=== PATIENT | female | born 1960 | race Caucasian/White ===

== ENCOUNTER 2018-07-08 01:15 | Inpatient (IN) | payer MEDICARE ==
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
[2018-07-08 04:31] VITALS: BP 113/69
[2018-07-08] MEDS: Multivitamin w/ Minerals Tab PO SCH (10:40)
--- NOTE | 2018-07-08 17:33 | History and Physical ---
History of Present Illness - HPI Chief Complaint: AGITATION HPI: THIS IS A 58-YEAR OLD FEMALE WHO IS A [facility] RESIDENT ADMITTED TO [facility] DUE TO AGITATION Vital Signs: Last Vital Signs Temp 98.7 F 07/08/18 14:00 Pulse 94 07/08/18 14:00 Resp 20 07/08/18 14:00 BP 134/72 07/08/18 14:00 Pulse Ox 98 07/08/18 14:00 Past Medical History Other History: PSYCHOSIS Family Medical History - Family Member Mother History Unknown: Yes Other Medical History: Pt has HX of HTN, Depression, Schizophrenia, GERD, Musle spasm Social History Smoke: No Alcohol: None Drugs: None Lives: Skilled Nursing - Medications Home Medications: Home Medication Medication Instructions Recorded Type Ascorbic Acid [Vitamin C] 500 mg PO DAILY 07/08/18 History Baclofen [Lioresal*] 10 mg PO TID 07/08/18 History Balsam Magalie/Decker Oil [Venelex] 1 appl TP DAILY 07/08/18 History Divalproex Sprinkle [Depakote 4 tab PO BID 07/08/18 History Sprinkle] Haloperidol Decanoate [Haldol 50 mg IM DAILY 07/08/18 History Decanoate 50] Hydrocodone/APAP 10 mg/325 mg 1 tab PO Q6H PRN 07/08/18 History [[place] 10 mg/325 mg] Hydrocodone/Acetaminophen [[place] 1 each PO Q6HR PRN 07/08/18 History 5-325 Tablet] Lacosamide [Vimpat] 50 mg PO BID 07/08/18 History Metoclopramide HCl 5 mg PO Q8HR PRN 07/08/18 History Morphine Sulfate 30 mg PO BID 07/08/18 History Multivitamin w/ Minerals 1 tab PO DAILY 07/08/18 History [Theragran M] OLANZapine [ZyPREXA] 5 mg PO BID PRN 07/08/18 History OLANZapine [ZyPREXA] 10 mg PO BID 07/08/18 History Pregabalin [Lyrica] 100 mg PO BID 07/08/18 History Rivaroxaban [Xarelto] 15 mg PO BID 07/08/18 History Silver Sulfadiazine 1% Cream [Ssd] 1 appl TP DAILY 07/08/18 History Trazodone HCl 50 mg PO HS 07/08/18 History - Allergies Allergies/Adverse Reactions: Allergies Allergy/AdvReac Type Severity Reaction Status Date / Time Penicillins Allergy Verified 07/08/18 01:42 Review of Systems - Review of Systems Constitutional: Report: No Significant Eyes: Report: No Significant Respiratory: Report: No Significant Cardiovascular: Report: No Significant Neurological: Report: No Significant Physical Exam - Physical Exam HEENT: Report: Ears Nose Throat within normal limits Neck: Report: Within normal limits Cardiovascular Systems: Report: +s1/s2 noted, Regular, Rate and Rhythm Respiratory: Report: Breath Sounds are within normal limits Abdomen: Report: Non-tender to palpation Skin: Report: Color of skin is within normal limits, Warm, Dry - Assessment Assessment: PSYCHOSIS AGITATION - Plan Plan: CONTINUE CURRENT ORDERS
[2018-07-08] MEDS: Hydrocodone/APAP 10 mg/325 mg Tab PO PRN (20:57)
--- NOTE | 2018-07-09 02:22 | Psychiatric Evaluation ---
DATE OF SERVICE: 07/08/2018 PSYCHIATRIC EVALUATION AND EXAMINATION IDENTIFYING DATA: The patient is a 58-year-old, resident of [facility]. Information obtained by directly interviewing the patient as well as reviewing the admission papers. JUSTIFICATION FOR HOSPITALIZATION: The patient is admitted here on voluntary basis in view of her acute psychosis. CHIEF COMPLAINT: "I do not known. HISTORY OF PRESENT ILLNESS: This is a first psychiatric hospitalization to [facility] for this patient, who is reported to have been very resistive and getting easily agitated and the patient has been in a assisted. The patient is reported to have decubitus ulcers and refusing the care and the patient is grossly psychotic and hence the patient has been admitted over here for stabilization. Sleep and appetite prior to the hospitalization are reported to be poor. Review of the chart indicated that the patient has been on 50 mg of the trazodone and olanzapine. She has been getting 10 mg b.i.d. and 5 mg b.i.d. p.r.n. The patient is also reported to be on the valproic acid, which she has been getting at 500 mg b.i.d. and the patient is also reported to have been getting the Haldol Decanoate on a monthly basis. Even with all the medication, the patient has been very reluctant to comply with the medication and has been screaming and yelling when I am trying to approach to get some information. PAST PSYCHIATRIC HISTORY: Details are not known. MEDICAL HISTORY AND PHYSICAL EXAMINATION: Requested to be done by Dr. Aquino. SUBSTANCE ABUSE HISTORY: None. PHYSICAL OR SEXUAL ABUSE HISTORY: Details are not known. MENTAL STATUS EXAMINATION: The patient is a 58-year-old, looking her stated age, superficially cooperative, very reluctant and resistive. The patient has paranoid delusions and is responding to internal stimuli. Insight and judgment at this time are noted to be still impaired. Impulse control is noted to be poor. Coping skills are also noted to be very poor. The patient is resistive to care. The patient is alert and oriented x 3. The patient's behavior is likely a danger to self at this time in view of her refusal to participate in the care. DIAGNOSTIC IMPRESSION: AXIS I: Schizoaffective disorder. AXIS II: None. AXIS III: As per Dr. Aquino. IMMEDIATE TREATMENT PLAN: The patient is going to be observed on inpatient unit, provided with supportive psychotherapy. The patient is going to be closely monitored. I encouraged to verbalize the concerns. Once stabilized, the patient is going to be discharged to self to be followed up on an outpatient basis. JOB# [id number]
[2018-07-09] MEDS ORDERED: Haloperidol Lactate 5 mg/mL 1mL Vial ONE (08:48)
[2018-07-09] MEDS ORDERED: Haloperidol Lactate 5 mg/mL 1mL Vial IM ONE (09:11)
[2018-07-09] MEDS: Venelex 60gm Tube TP SCH (09:32)
[2018-07-09] MEDS: Multivitamin w/ Minerals Tab PO SCH (09:32)
[2018-07-09] MEDS: Hydrocodone/APAP 10 mg/325 mg Tab PO PRN (20:38)
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
--- NOTE | 2018-07-10 01:05 | Progress Notes ---
DATE: 07/09/2018 SUBJECTIVE: Staff was spoken to. The patient is interviewed. Mood is noted to be irritable. Affect is constricted. The patient is screaming and yelling. One minute she is saying that I need to bring the pipe supervisor, next minute she is seeing that I need to bring the radiologist. The patient has been going on and on. The patient is screaming, yelling and stating that she is in assisted and she needs to be out. The patient has no insight into her illness. The patient has been having acute mood swings and paranoid delusions. PLAN: To continue the patient with the current medications and if the patient is going to be ____ off like this one, possibly the patient is going to be given a dose of Haldol, Ativan, and Benadryl to contain her mood swings. JOB# [id number]
[2018-07-10] MEDS: Multivitamin w/ Minerals Tab PO SCH (08:37)
[2018-07-10] MEDS: Venelex 60gm Tube TP SCH (08:39)
[2018-07-10] MEDS: Hydrocodone/APAP 10 mg/325 mg Tab PO PRN ×3 (10:03→23:30)
--- NOTE | 2018-07-10 19:24 | Internal Medicine Prog Note ---
Internal Medicine Subjective - Subjective Service Date: 07/10/18 Patient seen and examined:: with staff Patient is:: awake, verbal Per staff patient has:: tolerating meds Internal Medicine Objective - Physical Exam Vitals and I&O: Vital Signs Temp 97.4 F 07/10/18 14:00 Pulse 99 07/10/18 14:00 Resp 20 07/10/18 14:00 BP 134/97 07/10/18 14:00 Pulse Ox 97 07/10/18 14:00 Active Medications: Current Medications Acetaminophen (Tylenol) 650 mg PO Q4H PRN PRN Reason: Mild Pain / Temp above 100 Stop: 09/06/18 04:30 Last Admin: 07/08/18 05:35 Dose: 650 mg Acetaminophen/Hydrocodone Bitart ([place] 10 Mg/325 Mg) 1 tab PO Q6H PRN PRN Reason: Pain (Moderate) Stop: 09/06/18 10:21 Last Admin: 07/10/18 16:07 Dose: 1 tab Acetaminophen/Hydrocodone Bitart ([place] 5mg/325mg) 1 tab PO Q6HR PRN PRN Reason: Pain (Mild) Stop: 09/06/18 10:21 Ascorbic Acid (Vitamin C) 500 mg PO DAILY [facility] Stop: 09/06/18 10:29 Last Admin: 07/10/18 08:37 Dose: 500 mg [place] Oil/Belizean Balsam/Trypsin (Venelex) 1 appl TP DAILY [facility] Stop: 09/07/18 08:59 Last Admin: 07/10/18 08:39 Dose: Not Given Divalproex Sodium (Depakote Sprinkle) 500 mg PO BID JENNY; Protocol Stop: 09/06/18 16:59 Last Admin: 07/10/18 16:08 Dose: 500 mg Lacosamide (Vimpat) 50 mg PO BID JENNY Stop: 09/06/18 16:59 Last Admin: 07/10/18 16:07 Dose: 50 mg Lorazepam (Ativan) 0.5 mg PO Q4H PRN; Protocol PRN Reason: Anxiety Stop: 09/06/18 04:30 Last Admin: 07/09/18 20:38 Dose: 0.5 mg Olanzapine (Zyprexa) 5 mg PO BID PRN; Protocol PRN Reason: Agitation Stop: 09/06/18 10:37 Olanzapine (Zyprexa) 10 mg PO BID [facility]; Protocol Stop: 09/06/18 16:59 Last Admin: 07/10/18 16:07 Dose: 10 mg Pregabalin (Lyrica) 100 mg PO BID [facility] Stop: 09/06/18 10:29 Last Admin: 07/10/18 16:06 Dose: 100 mg Rivaroxaban (Xarelto) 15 mg PO BID [facility] Stop: 07/29/18 10:59 Last Admin: 07/10/18 16:07 Dose: 15 mg General: alert HEENT: NC/AT, PERRLA Neck: Supple Lungs: CTAB Cardiovascular: RRR, Normal S1, Normal S2 Abdomen: soft, non-tender, non-distended Internal Medicine Assmt/Plan - Assessment Assessment: PSYCHOSIS AGITATION - Plan Plan: CONTINUE CURRENT ORDERS Nutritional Asmnt/Malnutr-PDOC - Dietary Evaluation Malnutrition Findings (Please click <Entered> for more info): Nutritional Asmnt/Malnutrition Start: 07/09/18 14: 13 Text: Status: Complete Freq: Protocol: Document 07/09/18 14:13 [email or web address] (Rec: 07/09/18 14:25 [email or web address] JUAN JOSÉ) Nutritional Asmnt/Malnutrition Patient General Information Nutritional Screening Consult Diagnosis psychosis Pertinent Medical Hx/Surgical Hx HTN, depression, schizophrenia , GERD, muscle spasm Subjective Information Consult received for pressure ulcers to buttocks and right heel. Pt was seen in bed at time of visit, confused, continues to talk to self. Pt stated she likes juice but called the rest of the food " vomit", food preferences taken . PO intake is 0-25% per EMR. Pt only likes to drink liquids per RN. Current Diet Order/ Nutrition Support low sodium 2gm, cardiac Pertinent Medications vit c Pertinent Labs not indicated Nutritional Hx/Data Height 5 ft 4 in Height (Calculated Centimeters) 162.6 Current Weight (lbs) 120 lb Weight (Calculated Kilograms) 54.4 Weight (Calculated Grams) 27362.1 [place] Body Weight 120 Body Mass Index (BMI) 20.5 Weight Status Approriate GI Symptoms GI Symptoms None Last BM 07/08 Difficult in: None Food Allergies No Skin Integrity/Comment: pressure ulcers to buttocks and right heel, pressure areas right and left lower legs chino 13 Current %PO Negligible < 25% Estimated Nutritional Goals BEE in Kcals: Using Current wt Calories/Kcals/Kg 25-30 Kcals Calculated 3352-9079 Protein: Using Current wt Protein g/k-1.2 Protein Calculated 54-65 Fluid: ml 4829-7443 (1ml/kcal) Nutritional Problem 2. Problem Problem increased nutrient needs Etiology increased metabolic demand for wound healing Signs/Symptoms: pressure ulcers to buttocks and right heel, and pressure areas to right and left lower legs 1. Problem Problem inadequate energy/protein intake Etiology possible changes in appetite and food preference Signs/Symptoms: PO intake 0-25% Malnutrition Alert Is there a minimum of two criteria No selected? Query Text:Check all the applicable criteria. A minimum of two criteria are recommended for diagnosis of either severe or non-severe malnutrition. Malnutrition Related to Morbid Obesity Malnutrition related to morbid obesity No Intervention/Recommendation Comments 1. Continue with low sodium 2gm, cardiac diet as ordered. 2. Add ensure enlive TID for extra kcal and protein 3. Add Jeremias BID for wound healing 4. Monitor PO intake, wt, labs and skin integrity 5. F/U as high risk in 2-3 days Expected Outcomes/Goals Expected Outcomes/Goals 1. PO intake to meet at least 75% of nutritional needs. 2. Wt stability, skin to remain intact, labs to approach WNL. Reviewed by Cecilia Tanner RD
--- NOTE | 2018-07-10 20:19 | Progress Notes ---
DATE: 07/10/2018 SUBJECTIVE: Staff was spoken to. The patient is interviewed. Mood is noted to be irritable. Affect is constricted. Insight and judgment at this time are noted to be still impaired. Impulse control is noted to be poor. Coping skills are also noted to be very poor. The patient is currently on Depakote and olanzapine and has been able to tolerate the medication. However, the patient continues to be irritable and angry, tends to scream and yell. The patient has been very reluctant to comply with the plans as requested by the staff members. ASSESSMENT: The patient is grossly psychotic and impulsive. PLAN: To continue the patient with the supportive therapy and followup. JOB# [id number]
[2018-07-11] MEDS: Hydrocodone/APAP 5mg/325mg Tab PO PRN (10:00)
--- NOTE | 2018-07-11 11:40 | Progress Notes ---
DATE: 07/11/2018 PSYCHIATRIC PROGRESS NOTE SUBJECTIVE: Staff was spoken to. The patient is interviewed. Mood is noted to be irritable. Affect is constricted. Coping skills are noted to be poor. The patient is screaming and yelling. The patient is reluctant to comply with the medication with great difficulty. The patient has accepted the medications by mouth. The patient has no insight into her illness. The patient is refusing the wound care. ASSESSMENT: The patient is still grossly psychotic and impulsive. PLAN: To continue the patient with the supportive therapy and followup. JOB# [id number]
[2018-07-11] MEDS: Multivitamin w/ Minerals Tab PO SCH (13:58)
[2018-07-11] MEDS: Venelex 60gm Tube TP SCH (13:59)
--- NOTE | 2018-07-11 17:01 | Internal Medicine Prog Note ---
Internal Medicine Subjective - Subjective Patient seen and examined:: chart reviewed Patient is:: awake, verbal, other (agitated easily ) Per staff patient has:: tolerating meds Internal Medicine Objective - Physical Exam Vitals and I&O: Vital Signs Temp 99 F 07/11/18 15:21 Pulse 97 07/11/18 15:21 Resp 19 07/11/18 15:21 BP 135/88 07/11/18 15:21 Pulse Ox 98 07/11/18 15:21 Intake & Output 07/10/18 07/11/18 07/11/18 18:59 06:59 18:59 Intake Total 120 Balance 120 Intake: Oral 120 Other: # Voids 2 # Bowel Movements 0 Active Medications: Current Medications Acetaminophen (Tylenol) 650 mg PO Q4H PRN PRN Reason: Mild Pain / Temp above 100 Stop: 09/06/18 04:30 Last Admin: 07/11/18 13:57 Dose: 650 mg Acetaminophen/Hydrocodone Bitart ([place] 10 Mg/325 Mg) 1 tab PO Q6H PRN PRN Reason: Pain (Moderate) Stop: 09/06/18 10:21 Last Admin: 07/10/18 23:30 Dose: 1 tab Acetaminophen/Hydrocodone Bitart ([place] 5mg/325mg) 1 tab PO Q6HR PRN PRN Reason: Pain (Mild) Stop: 09/06/18 10:21 Last Admin: 07/11/18 10:00 Dose: 1 tab Ascorbic Acid (Vitamin C) 500 mg PO DAILY [facility] Stop: 09/06/18 10:29 Last Admin: 07/11/18 14:00 Dose: Not Given [place] Oil/Haitian Balsam/Trypsin (Venelex) 1 appl TP DAILY [facility] Stop: 09/07/18 08:59 Last Admin: 07/11/18 13:59 Dose: 1 appl Divalproex Sodium (Depakote Sprinkle) 500 mg PO BID JENNY; Protocol Stop: 09/06/18 16:59 Last Admin: 07/11/18 09:40 Dose: Not Given Lacosamide (Vimpat) 50 mg PO BID [facility] Stop: 09/06/18 16:59 Last Admin: 07/11/18 08:42 Dose: 50 mg Lorazepam (Ativan) 0.5 mg PO Q4H PRN; Protocol PRN Reason: Anxiety Stop: 09/06/18 04:30 Last Admin: 07/09/18 20:38 Dose: 0.5 mg Olanzapine (Zyprexa) 5 mg PO BID PRN; Protocol PRN Reason: Agitation Stop: 09/06/18 10:37 Olanzapine (Zyprexa) 10 mg PO BID JENNY; Protocol Stop: 09/06/18 16:59 Last Admin: 07/11/18 09:55 Dose: 10 mg Pregabalin (Lyrica) 100 mg PO BID [facility] Stop: 09/06/18 10:29 Last Admin: 07/11/18 08:44 Dose: 100 mg Rivaroxaban (Xarelto) 15 mg PO BID [facility] Stop: 07/29/18 10:59 Last Admin: 07/11/18 08:43 Dose: 15 mg General: alert, demented HEENT: NC/AT, PERRLA Neck: Supple Lungs: CTAB Cardiovascular: RRR, Normal S1, Normal S2 Abdomen: soft, non-tender, non-distended Internal Medicine Assmt/Plan - Assessment Assessment: PSYCHOSIS AGITATION - Plan Plan: as per psych will continue to monitor Nutritional Asmnt/Malnutr-PDOC - Dietary Evaluation Malnutrition Findings (Please click <Entered> for more info): Nutritional Asmnt/Malnutrition Start: 07/09/18 14: 13 Text: Status: Complete Freq: Protocol: Document 07/09/18 14:13 [email or web address] (Rec: 07/09/18 14:25 [email or web address] JUAN JOSÉ) Nutritional Asmnt/Malnutrition Patient General Information Nutritional Screening Consult Diagnosis psychosis Pertinent Medical Hx/Surgical Hx HTN, depression, schizophrenia , GERD, muscle spasm Subjective Information Consult received for pressure ulcers to buttocks and right heel. Pt was seen in bed at time of visit, confused, continues to talk to self. Pt stated she likes juice but called the rest of the food " vomit", food preferences taken . PO intake is 0-25% per EMR. Pt only likes to drink liquids per RN. Current Diet Order/ Nutrition Support low sodium 2gm, cardiac Pertinent Medications vit c Pertinent Labs not indicated Nutritional Hx/Data Height 1.63 m Height (Calculated Centimeters) 162.6 Current Weight (lbs) 54.431 kg Weight (Calculated Kilograms) 54.4 Weight (Calculated Grams) 66450.1 [place] Body Weight 120 Body Mass Index (BMI) 20.5 Weight Status Approriate GI Symptoms GI Symptoms None Last BM 07/08 Difficult in: None Food Allergies No Skin Integrity/Comment: pressure ulcers to buttocks and right heel, pressure areas right and left lower legs chino 13 Current %PO Negligible < 25% Estimated Nutritional Goals BEE in Kcals: Using Current wt Calories/Kcals/Kg 25-30 Kcals Calculated 1697-8007 Protein: Using Current wt Protein g/k-1.2 Protein Calculated 54-65 Fluid: ml 4990-2759 (1ml/kcal) Nutritional Problem 2. Problem Problem increased nutrient needs Etiology increased metabolic demand for wound healing Signs/Symptoms: pressure ulcers to buttocks and right heel, and pressure areas to right and left lower legs 1. Problem Problem inadequate energy/protein intake Etiology possible changes in appetite and food preference Signs/Symptoms: PO intake 0-25% Malnutrition Alert Is there a minimum of two criteria No selected? Query Text:Check all the applicable criteria. A minimum of two criteria are recommended for diagnosis of either severe or non-severe malnutrition. Malnutrition Related to Morbid Obesity Malnutrition related to morbid obesity No Intervention/Recommendation Comments 1. Continue with low sodium 2gm, cardiac diet as ordered. 2. Add ensure enlive TID for extra kcal and protein 3. Add Jeremias BID for wound healing 4. Monitor PO intake, wt, labs and skin integrity 5. F/U as high risk in 2-3 days Expected Outcomes/Goals Expected Outcomes/Goals 1. PO intake to meet at least 75% of nutritional needs. 2. Wt stability, skin to remain intact, labs to approach WNL. Reviewed by Cecilia Tanner RD
[2018-07-11] MEDS: Hydrocodone/APAP 10 mg/325 mg Tab PO PRN (20:40)
[2018-07-12] MEDS: Hydrocodone/APAP 10 mg/325 mg Tab PO PRN ×2 (02:24→20:41)
[2018-07-12] MEDS ORDERED: Haloperidol Lactate 5 mg/mL 1mL Vial IM PRN (04:27)
[2018-07-12] MEDS: Venelex 60gm Tube TP SCH (09:46)
[2018-07-12] MEDS: Multivitamin w/ Minerals Tab PO SCH (09:46)
[2018-07-12] MEDS: Hydrocodone/APAP 5mg/325mg Tab PO PRN (13:20)
--- NOTE | 2018-07-12 17:00 | Progress Notes ---
DATE: 07/11/2018 SUBJECTIVE: The patient is seen and interviewed. The patient presents as irritable. The patient's behavior includes persistent yelling episodes. Staff indicates the patient has been mostly noncompliant with medication and quite difficult to redirect on the unit. The staff also indicates that the patient refused her wound care. The patient is oppositional and rises almost to the point of being defiant at times. OBJECTIVE: Mood irritable. Affect constricted. Thought process shows to be concrete. There is paranoid ideation present. The patient is having great difficulty following through and complying with her treatment. The patient denied any auditory or visual hallucinations. The patient did not answer the question about experiencing any suicidal ideation, plan or intention. ASSESSMENT AND PLAN: The patient is still impulsive and resistant to care. The patient continues to be grossly psychotic. The patient's behavior is oppositional rising almost to defiance. We provided remotivation for the patient to become compliant with her care and treatment. We provided de-escalation and limit setting. We encouraged the patient also to be able to demonstrate emotional and self-regulation and verbalize her concerns versus acting out. We provided stress management to increase the patient's frustration tolerance. We provided coping strategies for chronic severe mental illness and to engender trust with the staff, so that she can follow through with staff direction. We will follow up in 2-3 days to continue the present treatment plan. JOB# [id number] JESSICA
--- NOTE | 2018-07-12 21:20 | Progress Notes ---
DATE: 07/12/2018 SUBJECTIVE: The patient was seen in the dining area. The patient is irritable, guarded, easily gets frustrated, appears to be confused. Otherwise, the patient is in no acute distress. OBJECTIVE: VITAL SIGNS: Temperature 98.3, heart rate 91, blood pressure 101/72, respirations 20, and 98% on room air. HEENT: Head is atraumatic and normocephalic. Eyes: Bilateral conjunctivae are clear. Bilateral pupils are equally round and reactive. NECK: Supple. No JVD. CARDIOVASCULAR: S1 and S2 without murmur. PULMONARY: Clear to auscultation. GASTROINTESTINAL: Soft and nontender without guarding. Positive bowel sounds. MUSCULOSKELETAL: No clubbing. No cyanosis noted. ASSESSMENT: 1. Schizoaffective disorder. 2. Osteoarthritis. 3. Atrial fibrillation. PLAN: We will keep the patient in inpatient psychiatric unit. We will follow up with a psychiatrist to monitor the patient's condition and behavior. Treatment plans were discussed with the patient's nurse. Treatment plans were discussed with Dr. Aquino. JOB# [id number]
--- NOTE | 2018-07-13 01:42 | Progress Notes ---
DATE: 07/12/2018 PSYCHIATRIC PROGRESS NOTE SUBJECTIVE: Staff was spoken to. The patient is interviewed. Mood is noted to be irritable. Affect is constricted. The patient is screaming and yelling. She is stating that she is in a [facility]. She needs to be out of here and going on and on. The patient is very paranoid and is having acute mood swings. No side effects to the medications are noted. The patient has been screaming and yelling earlier in the morning and the patient has to be given a dose of Haldol, Ativan and Benadryl to calm her down. ASSESSMENT: The patient is still psychotic and impulsive. PLAN: To continue the patient with the current medications and followup. JOB# [id number]
[2018-07-13] MEDS: Venelex 60gm Tube TP SCH (09:41)
[2018-07-13] MEDS: Multivitamin w/ Minerals Tab PO SCH ×2 (09:41→10:19)
[2018-07-13] MEDS: Hydrocodone/APAP 10 mg/325 mg Tab PO PRN ×2 (16:08→22:21)
[2018-07-14] MEDS: Hydrocodone/APAP 10 mg/325 mg Tab PO PRN ×3 (06:12→22:47)
--- NOTE | 2018-07-14 07:54 | Progress Notes ---
DATE: 07/13/2018 SUBJECTIVE: Staff was spoken to. The patient is interviewed. Mood is noted to be irritable. Affect is constricted. The patient is stating that she should be given the 30 mg of morphine and Tegretol. The patient is demanding. The patient's coping skills are noted to be very poor. The aggressive behavior seems to be coming down a little bit today. No side effects to the medications are noted. ASSESSMENT: The patient is still psychotic and impulsive. PLAN: To continue the patient with the current medications and followup. JOB# [id number]
[2018-07-14] MEDS: Multivitamin w/ Minerals Tab PO SCH (09:02)
[2018-07-14] MEDS: Venelex 60gm Tube TP SCH (09:57)
--- NOTE | 2018-07-14 14:52 | Internal Medicine Prog Note ---
Internal Medicine Subjective - Subjective Service Date: 07/14/18 Patient is:: awake, verbal, talking, agitated, other (affect is constricted. Pt is being demanding, stating she should recieve 30.mg of morphine & Tegretol.) Per staff patient has:: agitated (less aggressive today.), tolerating meds Internal Medicine Objective - Physical Exam Vitals and I&O: Vital Signs Temp 98.0 F 07/14/18 04:48 Pulse 78 07/14/18 04:48 Resp 19 07/14/18 04:48 BP 117/73 07/14/18 04:48 Pulse Ox 96 07/14/18 04:48 Intake & Output 07/13/18 07/14/18 07/14/18 18:59 06:59 18:59 Intake Total 480 Balance 480 Intake: Oral 480 Other: # Voids 2 # Bowel Movements 0 Active Medications: Current Medications Acetaminophen (Tylenol) 650 mg PO Q4H PRN PRN Reason: Mild Pain / Temp above 100 Stop: 09/06/18 04:30 Last Admin: 07/14/18 09:57 Dose: 650 mg Acetaminophen/Hydrocodone Bitart ([place] 10 Mg/325 Mg) 1 tab PO Q6H PRN PRN Reason: Pain (Moderate) Stop: 09/06/18 10:21 Last Admin: 07/14/18 13:57 Dose: 1 tab Acetaminophen/Hydrocodone Bitart ([place] 5mg/325mg) 1 tab PO Q6HR PRN PRN Reason: Pain (Mild) Stop: 09/06/18 10:21 Last Admin: 07/12/18 13:20 Dose: 1 tab Ascorbic Acid (Vitamin C) 500 mg PO DAILY [facility] Stop: 09/06/18 10:29 Last Admin: 07/14/18 09:02 Dose: 500 mg [place] Oil/[place] Balsam/Trypsin (Venelex) 1 appl TP DAILY [facility] Stop: 09/07/18 08:59 Last Admin: 07/14/18 09:57 Dose: 1 appl Divalproex Sodium (Depakote Sprinkle) 500 mg PO BID [facility]; Protocol Stop: 09/06/18 16:59 Last Admin: 07/14/18 09:01 Dose: Not Given Haloperidol Lactate (Haldol) 5 mg IM NOW PRN PRN Reason: Agitation Stop: 09/10/18 04:26 Last Admin: 07/12/18 04:52 Dose: 5 mg Lacosamide (Vimpat) 50 mg PO BID [facility] Stop: 09/06/18 16:59 Last Admin: 07/14/18 09:57 Dose: 50 mg Lorazepam (Ativan) 0.5 mg PO Q4H PRN; Protocol PRN Reason: Anxiety Stop: 09/06/18 04:30 Last Admin: 07/13/18 20:17 Dose: 0.5 mg Lorazepam (Ativan) 1 mg IM NOW PRN; Protocol PRN Reason: Anxiety Stop: 09/10/18 04:27 Last Admin: 07/12/18 04:52 Dose: 1 mg Olanzapine (Zyprexa) 5 mg PO BID PRN; Protocol PRN Reason: Agitation Stop: 09/06/18 10:37 Last Admin: 07/13/18 20:17 Dose: 5 mg Olanzapine (Zyprexa) 10 mg PO BID [facility]; Protocol Stop: 09/06/18 16:59 Last Admin: 07/14/18 09:02 Dose: 10 mg Pregabalin (Lyrica) 100 mg PO BID [facility] Stop: 09/06/18 10:29 Last Admin: 07/14/18 09:01 Dose: 100 mg Rivaroxaban (Xarelto) 15 mg PO BID [facility] Stop: 07/29/18 10:59 Last Admin: 07/14/18 10:36 Dose: 15 mg General: alert, demented HEENT: NC/AT, PERRLA Neck: Supple Lungs: CTAB Cardiovascular: RRR, Normal S1, Normal S2 Abdomen: soft, non-tender, non-distended Internal Medicine Assmt/Plan - Assessment Assessment: still psychotic and impulsive PSYCHOSIS AGITATION - Plan Plan: as per psych will continue to monitor Nutritional Asmnt/Malnutr-PDOC - Dietary Evaluation Malnutrition Findings (Please click <Entered> for more info): Nutritional Asmnt/Malnutrition Start: 07/09/18 14: 13 Text: Status: Complete Freq: Protocol: Document 07/09/18 14:13 [email or web address] (Rec: 07/09/18 14:25 [email or web address] JUAN JOSÉ) Nutritional Asmnt/Malnutrition Patient General Information Nutritional Screening Consult Diagnosis psychosis Pertinent Medical Hx/Surgical Hx HTN, depression, schizophrenia , GERD, muscle spasm Subjective Information Consult received for pressure ulcers to buttocks and right heel. Pt was seen in bed at time of visit, confused, continues to talk to self. Pt stated she likes juice but called the rest of the food " vomit", food preferences taken . PO intake is 0-25% per EMR. Pt only likes to drink liquids per RN. Current Diet Order/ Nutrition Support low sodium 2gm, cardiac Pertinent Medications vit c Pertinent Labs not indicated Nutritional Hx/Data Height 1.63 m Height (Calculated Centimeters) 162.6 Current Weight (lbs) 54.431 kg Weight (Calculated Kilograms) 54.4 Weight (Calculated Grams) 06109.1 [place] Body Weight 120 Body Mass Index (BMI) 20.5 Weight Status Approriate GI Symptoms GI Symptoms None Last BM 07/08 Difficult in: None Food Allergies No Skin Integrity/Comment: pressure ulcers to buttocks and right heel, pressure areas right and left lower legs chino 13 Current %PO Negligible < 25% Estimated Nutritional Goals BEE in Kcals: Using Current wt Calories/Kcals/Kg 25-30 Kcals Calculated 7803-8841 Protein: Using Current wt Protein g/k-1.2 Protein Calculated 54-65 Fluid: ml 7931-4823 (1ml/kcal) Nutritional Problem 2. Problem Problem increased nutrient needs Etiology increased metabolic demand for wound healing Signs/Symptoms: pressure ulcers to buttocks and right heel, and pressure areas to right and left lower legs 1. Problem Problem inadequate energy/protein intake Etiology possible changes in appetite and food preference Signs/Symptoms: PO intake 0-25% Malnutrition Alert Is there a minimum of two criteria No selected? Query Text:Check all the applicable criteria. A minimum of two criteria are recommended for diagnosis of either severe or non-severe malnutrition. Malnutrition Related to Morbid Obesity Malnutrition related to morbid obesity No Intervention/Recommendation Comments 1. Continue with low sodium 2gm, cardiac diet as ordered. 2. Add ensure enlive TID for extra kcal and protein 3. Add Jeremias BID for wound healing 4. Monitor PO intake, wt, labs and skin integrity 5. F/U as high risk in 2-3 days Expected Outcomes/Goals Expected Outcomes/Goals 1. PO intake to meet at least 75% of nutritional needs. 2. Wt stability, skin to remain intact, labs to approach WNL. Reviewed by Cecilia Tanner RD
--- NOTE | 2018-07-14 23:22 | Progress Notes ---
DATE: 07/14/2018 SUBJECTIVE: Staff was spoken to. The patient is interviewed. Mood is noted to be irritable. Affect is constricted. Insight and judgment are noted to be still impaired. Impulse control is very poor. The patient has been getting the Zyprexa 10 mg twice a day and has been able to tolerate. The patient is also on Depakote 500 mg twice a day. No side effects to medications are noted. The patient has been pacing on the unit and the patient needs to be redirected all the time. ASSESSMENT: The patient is still paranoid. PLAN: To continue the patient with the supportive therapy, encouraged the patient to verbalize the concerns rather than to act out. JOB# [id number]
[2018-07-15] MEDS: Hydrocodone/APAP 10 mg/325 mg Tab PO PRN ×3 (06:23→20:59)
[2018-07-15] MEDS: Hydrocodone/APAP 5mg/325mg Tab PO PRN (09:07)
[2018-07-15] MEDS: Multivitamin w/ Minerals Tab PO SCH (09:08)
[2018-07-15] MEDS: Venelex 60gm Tube TP SCH ×2 (10:00→16:00)
--- NOTE | 2018-07-15 13:48 | Internal Medicine Prog Note ---
Internal Medicine Subjective - Subjective Service Date: 07/15/18 Patient is:: awake, verbal, talking, agitated, other (affect is constricted. Pt is being demanding, stating she should recieve 30.mg of morphine & Tegretol.) Per staff patient has:: agitated (less aggressive today.), tolerating meds Internal Medicine Objective - Physical Exam Vitals and I&O: Vital Signs Temp 99.0 F 07/14/18 20:08 Pulse 96 07/14/18 20:08 Resp 20 07/14/18 20:08 BP 123/77 07/14/18 20:08 Pulse Ox 99 07/14/18 20:08 Intake & Output 07/14/18 07/15/18 07/15/18 18:59 06:59 18:59 Intake Total 1200 240 Balance 1200 240 Intake: Oral 1200 240 Other: # Voids 3 2 Active Medications: Current Medications Acetaminophen (Tylenol) 650 mg PO Q4H PRN PRN Reason: Mild Pain / Temp above 100 Stop: 09/06/18 04:30 Last Admin: 07/14/18 09:57 Dose: 650 mg Acetaminophen/Hydrocodone Bitart ([place] 10 Mg/325 Mg) 1 tab PO Q6H PRN PRN Reason: Pain (Moderate) Stop: 09/06/18 10:21 Last Admin: 07/15/18 06:23 Dose: 1 tab Acetaminophen/Hydrocodone Bitart ([place] 5mg/325mg) 1 tab PO Q6HR PRN PRN Reason: Pain (Mild) Stop: 09/06/18 10:21 Last Admin: 07/15/18 09:07 Dose: 1 tab Ascorbic Acid (Vitamin C) 500 mg PO DAILY [facility] Stop: 09/06/18 10:29 Last Admin: 07/15/18 09:08 Dose: 500 mg [place] Oil/[place] Balsam/Trypsin (Venelex) 1 appl TP DAILY [facility] Stop: 09/07/18 08:59 Last Admin: 07/14/18 09:57 Dose: 1 appl Divalproex Sodium (Depakote Sprinkle) 500 mg PO BID [facility]; Protocol Stop: 09/06/18 16:59 Last Admin: 07/15/18 09:09 Dose: Not Given Haloperidol Lactate (Haldol) 5 mg IM NOW PRN PRN Reason: Agitation Stop: 09/10/18 04:26 Last Admin: 07/12/18 04:52 Dose: 5 mg Lacosamide (Vimpat) 50 mg PO BID [facility] Stop: 09/06/18 16:59 Last Admin: 07/15/18 09:08 Dose: 50 mg Lorazepam (Ativan) 0.5 mg PO Q4H PRN; Protocol PRN Reason: Anxiety Stop: 09/06/18 04:30 Last Admin: 07/13/18 20:17 Dose: 0.5 mg Lorazepam (Ativan) 1 mg IM NOW PRN; Protocol PRN Reason: Anxiety Stop: 09/10/18 04:27 Last Admin: 07/12/18 04:52 Dose: 1 mg Olanzapine (Zyprexa) 5 mg PO BID PRN; Protocol PRN Reason: Agitation Stop: 09/06/18 10:37 Last Admin: 07/14/18 22:47 Dose: 5 mg Olanzapine (Zyprexa) 10 mg PO BID [facility]; Protocol Stop: 09/06/18 16:59 Last Admin: 07/15/18 09:08 Dose: 10 mg Pregabalin (Lyrica) 100 mg PO BID [facility] Stop: 09/06/18 10:29 Last Admin: 07/15/18 09:07 Dose: 100 mg Rivaroxaban (Xarelto) 15 mg PO BID [facility] Stop: 07/29/18 10:59 Last Admin: 07/15/18 09:07 Dose: 15 mg General: alert, demented HEENT: NC/AT, PERRLA Neck: Supple Lungs: CTAB Cardiovascular: RRR, Normal S1, Normal S2 Abdomen: soft, non-tender, non-distended Internal Medicine Assmt/Plan - Assessment Assessment: PSYCHOSIS AGITATION - Plan Plan: CONTINUE CURRENT ORDERS Nutritional Asmnt/Malnutr-PDOC - Dietary Evaluation Malnutrition Findings (Please click <Entered> for more info): Nutritional Asmnt/Malnutrition Start: 07/09/18 14: 13 Text: Status: Complete Freq: Protocol: Document 07/09/18 14:13 [email or web address] (Rec: 07/09/18 14:25 [email or web address] JUAN JOSÉ) Nutritional Asmnt/Malnutrition Patient General Information Nutritional Screening Consult Diagnosis psychosis Pertinent Medical Hx/Surgical Hx HTN, depression, schizophrenia , GERD, muscle spasm Subjective Information Consult received for pressure ulcers to buttocks and right heel. Pt was seen in bed at time of visit, confused, continues to talk to self. Pt stated she likes juice but called the rest of the food " vomit", food preferences taken . PO intake is 0-25% per EMR. Pt only likes to drink liquids per RN. Current Diet Order/ Nutrition Support low sodium 2gm, cardiac Pertinent Medications vit c Pertinent Labs not indicated Nutritional Hx/Data Height 5 ft 4 in Height (Calculated Centimeters) 162.6 Current Weight (lbs) 120 lb Weight (Calculated Kilograms) 54.4 Weight (Calculated Grams) 55655.1 [place] Body Weight 120 Body Mass Index (BMI) 20.5 Weight Status Approriate GI Symptoms GI Symptoms None Last BM 07/08 Difficult in: None Food Allergies No Skin Integrity/Comment: pressure ulcers to buttocks and right heel, pressure areas right and left lower legs chino 13 Current %PO Negligible < 25% Estimated Nutritional Goals BEE in Kcals: Using Current wt Calories/Kcals/Kg 25-30 Kcals Calculated 6000-5339 Protein: Using Current wt Protein g/k-1.2 Protein Calculated 54-65 Fluid: ml 5769-4333 (1ml/kcal) Nutritional Problem 2. Problem Problem increased nutrient needs Etiology increased metabolic demand for wound healing Signs/Symptoms: pressure ulcers to buttocks and right heel, and pressure areas to right and left lower legs 1. Problem Problem inadequate energy/protein intake Etiology possible changes in appetite and food preference Signs/Symptoms: PO intake 0-25% Malnutrition Alert Is there a minimum of two criteria No selected? Query Text:Check all the applicable criteria. A minimum of two criteria are recommended for diagnosis of either severe or non-severe malnutrition. Malnutrition Related to Morbid Obesity Malnutrition related to morbid obesity No Intervention/Recommendation Comments 1. Continue with low sodium 2gm, cardiac diet as ordered. 2. Add ensure enlive TID for extra kcal and protein 3. Add Jeremias BID for wound healing 4. Monitor PO intake, wt, labs and skin integrity 5. F/U as high risk in 2-3 days Expected Outcomes/Goals Expected Outcomes/Goals 1. PO intake to meet at least 75% of nutritional needs. 2. Wt stability, skin to remain intact, labs to approach WNL. Reviewed by Cecilia Tanner RD
--- NOTE | 2018-07-15 14:12 | Progress Notes ---
DATE: 07/15/2018 PSYCHIATRIC PROGRESS NOTE PROGRESS ON THE UNIT: Staff was spoken to. The patient is interviewed. Mood is noted to be less irritable. Coping skills are noted to be improving. Paranoid delusions are noted, but the patient denies any current hallucinations. No side effects to the medications are noted at this time. ASSESSMENT: The patient's psychosis is resolving. PLAN: To continue the patient with current medications and followup. [facility]# [id number]
--- NOTE | 2018-07-16 00:29 | Progress Notes ---
DATE: 07/14/2018 SUBJECTIVE: The patient has been seen and interviewed. The patient presents as irritable and somewhat oppositional. Staff reports the patient continues to be impulsive and is pacing on the unit. The staff also indicates the patient needs to be constantly redirected and has difficulty following through with staff direction. OBJECTIVE: Mood irritable. Affect constricted. Thought process shows paranoid ideation. The patient did not answer questions about experiencing auditory or visual hallucinations. The patient's behavior has been oppositional and difficult to redirect on the unit. ASSESSMENT AND PLAN: The patient continues to be paranoid and generally resistive to care. We will continue to provide supportive psychotherapy. We provided reality orientation, differentiation and integration. We provided remotivation for the patient to become compliant and stay compliant with all aspects of care and treatment. Motivational enhancement was provided for the patient to follow through with staff direction. We encouraged the patient to verbalize her concerns versus acting out. We encouraged the patient to demonstrate emotional and self-regulation. We will follow up in 2-3 days to continue present treatment. JOB# [id number] JESSICA
[2018-07-16] MEDS: Venelex 60gm Tube TP SCH (09:47)
[2018-07-16] MEDS: Multivitamin w/ Minerals Tab PO SCH (09:49)
--- NOTE | 2018-07-16 09:58 | Progress Notes ---
DATE: 07/16/2018 SUBJECTIVE: Staff was spoken to. The patient is interviewed. Mood is noted to be less irritable. Affect is appropriate. The patient is not suicidal or homicidal. Insight and judgment are noted to be improving. Paranoid delusions are noted, but the aggressive behavior, screaming and yelling has been coming down. ASSESSMENT: The patient's psychosis is resolving. PLAN: To continue the patient with supportive therapy. I encouraged the patient to verbalize the concerns rather than to act out. [facility]# [id number]
--- NOTE | 2018-07-16 20:25 | Internal Medicine Prog Note ---
Internal Medicine Subjective - Subjective Service Date: 07/16/18 Patient is:: awake, verbal, talking, agitated, other (affect is constricted. Pt is being demanding, stating she should recieve 30.mg of morphine & Tegretol.) Per staff patient has:: agitated (less aggressive today.), tolerating meds Internal Medicine Objective - Physical Exam Vitals and I&O: Vital Signs Temp 98.0 F 07/16/18 14:00 Pulse 78 07/16/18 14:00 Resp 18 07/16/18 14:00 BP 125/70 07/16/18 14:00 Pulse Ox 95 07/16/18 14:00 Intake & Output 07/16/18 07/16/18 07/17/18 06:59 18:59 06:59 Intake Total 240 1200 Output Total 1 Balance 239 1200 Intake: Oral 240 1200 Output: Urine/Stool Mix 1 Other: # Voids 1 Active Medications: Current Medications Acetaminophen (Tylenol) 650 mg PO Q4H PRN PRN Reason: Mild Pain / Temp above 100 Stop: 09/06/18 04:30 Last Admin: 07/15/18 17:25 Dose: 650 mg Acetaminophen/Hydrocodone Bitart ([place] 10 Mg/325 Mg) 1 tab PO Q6H PRN PRN Reason: Pain (Moderate) Stop: 09/06/18 10:21 Last Admin: 07/15/18 20:59 Dose: 1 tab Acetaminophen/Hydrocodone Bitart ([place] 5mg/325mg) 1 tab PO Q6HR PRN PRN Reason: Pain (Mild) Stop: 09/06/18 10:21 Last Admin: 07/15/18 09:07 Dose: 1 tab Ascorbic Acid (Vitamin C) 500 mg PO DAILY [facility] Stop: 09/06/18 10:29 Last Admin: 07/16/18 09:48 Dose: Not Given [place] Oil/[place] Balsam/Trypsin (Venelex) 1 appl TP DAILY [facility] Stop: 09/07/18 08:59 Last Admin: 07/16/18 09:47 Dose: Not Given Divalproex Sodium (Depakote Sprinkle) 500 mg PO BID [facility]; Protocol Stop: 09/06/18 16:59 Last Admin: 07/16/18 17:03 Dose: Not Given Haloperidol Lactate (Haldol) 5 mg IM NOW PRN PRN Reason: Agitation Stop: 09/10/18 04:26 Last Admin: 07/12/18 04:52 Dose: 5 mg Lacosamide (Vimpat) 50 mg PO BID JENNY Stop: 09/06/18 16:59 Last Admin: 07/16/18 17:04 Dose: 50 mg Lorazepam (Ativan) 0.5 mg PO Q4H PRN; Protocol PRN Reason: Anxiety Stop: 09/06/18 04:30 Last Admin: 07/16/18 04:29 Dose: 0.5 mg Lorazepam (Ativan) 1 mg IM NOW PRN; Protocol PRN Reason: Anxiety Stop: 09/10/18 04:27 Last Admin: 07/12/18 04:52 Dose: 1 mg Olanzapine (Zyprexa) 5 mg PO BID PRN; Protocol PRN Reason: Agitation Stop: 09/06/18 10:37 Last Admin: 07/15/18 21:12 Dose: 5 mg Olanzapine (Zyprexa) 10 mg PO BID JENNY; Protocol Stop: 09/06/18 16:59 Last Admin: 07/16/18 17:04 Dose: Not Given General: alert, demented HEENT: NC/AT, PERRLA Neck: Supple Lungs: CTAB Cardiovascular: RRR, Normal S1, Normal S2 Abdomen: soft, non-tender, non-distended Internal Medicine Assmt/Plan - Assessment Assessment: PSYCHOSIS AGITATION - Plan Plan: CONTINUE CURRENT ORDERS Nutritional Asmnt/Malnutr-PDOC - Dietary Evaluation Malnutrition Findings (Please click <Entered> for more info): Nutritional Asmnt/Malnutrition Start: 07/09/18 14: 13 Text: Status: Complete Freq: Protocol: Document 07/09/18 14:13 [email or web address] (Rec: 07/09/18 14:25 [email or web address] JUAN JOSÉ) Nutritional Asmnt/Malnutrition Patient General Information Nutritional Screening Consult Diagnosis psychosis Pertinent Medical Hx/Surgical Hx HTN, depression, schizophrenia , GERD, muscle spasm Subjective Information Consult received for pressure ulcers to buttocks and right heel. Pt was seen in bed at time of visit, confused, continues to talk to self. Pt stated she likes juice but called the rest of the food " vomit", food preferences taken . PO intake is 0-25% per EMR. Pt only likes to drink liquids per RN. Current Diet Order/ Nutrition Support low sodium 2gm, cardiac Pertinent Medications vit c Pertinent Labs not indicated Nutritional Hx/Data Height 5 ft 4 in Height (Calculated Centimeters) 162.6 Current Weight (lbs) 120 lb Weight (Calculated Kilograms) 54.4 Weight (Calculated Grams) 51699.1 [place] Body Weight 120 Body Mass Index (BMI) 20.5 Weight Status Approriate GI Symptoms GI Symptoms None Last BM 07/08 Difficult in: None Food Allergies No Skin Integrity/Comment: pressure ulcers to buttocks and right heel, pressure areas right and left lower legs chino 13 Current %PO Negligible < 25% Estimated Nutritional Goals BEE in Kcals: Using Current wt Calories/Kcals/Kg 25-30 Kcals Calculated 9246-5128 Protein: Using Current wt Protein g/k-1.2 Protein Calculated 54-65 Fluid: ml 7781-8598 (1ml/kcal) Nutritional Problem 2. Problem Problem increased nutrient needs Etiology increased metabolic demand for wound healing Signs/Symptoms: pressure ulcers to buttocks and right heel, and pressure areas to right and left lower legs 1. Problem Problem inadequate energy/protein intake Etiology possible changes in appetite and food preference Signs/Symptoms: PO intake 0-25% Malnutrition Alert Is there a minimum of two criteria No selected? Query Text:Check all the applicable criteria. A minimum of two criteria are recommended for diagnosis of either severe or non-severe malnutrition. Malnutrition Related to Morbid Obesity Malnutrition related to morbid obesity No Intervention/Recommendation Comments 1. Continue with low sodium 2gm, cardiac diet as ordered. 2. Add ensure enlive TID for extra kcal and protein 3. Add Jeremias BID for wound healing 4. Monitor PO intake, wt, labs and skin integrity 5. F/U as high risk in 2-3 days Expected Outcomes/Goals Expected Outcomes/Goals 1. PO intake to meet at least 75% of nutritional needs. 2. Wt stability, skin to remain intact, labs to approach WNL. Reviewed by Cecilia Tanner RD
[2018-07-16] MEDS: Hydrocodone/APAP 10 mg/325 mg Tab PO PRN (20:43)
--- NOTE | 2018-07-17 06:31 | Progress Notes ---
DATE: 07/16/2018 SUBJECTIVE: The patient is seen and interviewed. Case is discussed with staff. The patient presents as less irritable this visit. The patient's aggressive behavior, i.e., yelling episodes are diminishing. However, there is some suspiciousness and possible paranoid ideation that persists. OBJECTIVE: Mood stabilizing. Affect appropriate. Thought process shows to be linear and more goal oriented. The patient denied any hallucinations. There is possible persistent paranoid ideation. The patient's aggressive behavior is diminishing. ASSESSMENT AND PLAN: The patient's psychotic symptoms are resolving. We provided reality orientation and integration. We provided positive reinforcement for the patient to stay compliant with all aspects of her care and treatment. We provided stress management to assist the patient to increase her frustration tolerance and reduce her yelling episodes. We encouraged the patient to verbalize her concerns versus acting out. We encouraged the patient to continue to demonstrate emotional and self-regulation. We provided coping strategies for phase of life issues. Prognosis is fair. We will follow up in 2 -3 days to continue present treatment if the patient is still admitted. JOB# [id number] JESSICA
[2018-07-17] MEDS: Venelex 60gm Tube TP SCH (09:02)
[2018-07-17] MEDS: Multivitamin w/ Minerals Tab PO SCH (09:03)
[2018-07-17] MEDS: Hydrocodone/APAP 5mg/325mg Tab PO PRN (12:38)
--- NOTE | 2018-07-17 18:42 | Internal Medicine Prog Note ---
Internal Medicine Subjective - Subjective Service Date: 07/17/18 Patient is:: awake, verbal, talking, agitated, other (affect is constricted. Pt is being demanding, stating she should recieve 30.mg of morphine & Tegretol.) Per staff patient has:: agitated (less aggressive today.), tolerating meds Internal Medicine Objective - Physical Exam Vitals and I&O: Vital Signs Temp 98.8 F 07/17/18 14:00 Pulse 94 07/17/18 14:00 Resp 20 07/17/18 14:00 BP 123/91 07/17/18 14:00 Pulse Ox 96 07/17/18 14:00 Intake & Output 07/16/18 07/17/18 07/17/18 18:59 06:59 18:59 Intake Total 6468 890 7378 Balance 9025 602 4751 Intake: Oral 0254 743 1150 Other: # Voids 3 4 # Bowel Movements 1 Active Medications: Current Medications Acetaminophen (Tylenol) 650 mg PO Q4H PRN PRN Reason: Mild Pain / Temp above 100 Stop: 09/06/18 04:30 Last Admin: 07/15/18 17:25 Dose: 650 mg Acetaminophen/Hydrocodone Bitart ([place] 10 Mg/325 Mg) 1 tab PO Q6H PRN PRN Reason: Pain (Moderate) Stop: 09/06/18 10:21 Last Admin: 07/16/18 20:43 Dose: 1 tab Acetaminophen/Hydrocodone Bitart ([place] 5mg/325mg) 1 tab PO Q6HR PRN PRN Reason: Pain (Mild) Stop: 09/06/18 10:21 Last Admin: 07/15/18 09:07 Dose: 1 tab Ascorbic Acid (Vitamin C) 500 mg PO DAILY [facility] Stop: 09/06/18 10:29 Last Admin: 07/17/18 09:04 Dose: 500 mg [place] Oil/Bangl[place] Balsam/Trypsin (Venelex) 1 appl TP DAILY [facility] Stop: 09/07/18 08:59 Last Admin: 07/17/18 09:02 Dose: 1 appl Divalproex Sodium (Depakote Sprinkle) 500 mg PO BID [facility]; Protocol Stop: 09/06/18 16:59 Last Admin: 07/17/18 16:20 Dose: Not Given Haloperidol Lactate (Haldol) 5 mg IM NOW PRN PRN Reason: Agitation Stop: 09/10/18 04:26 Last Admin: 07/12/18 04:52 Dose: 5 mg Lacosamide (Vimpat) 50 mg PO BID [facility]ENNY Stop: 09/06/18 16:59 Last Admin: 07/17/18 16:21 Dose: 50 mg Lorazepam (Ativan) 0.5 mg PO Q4H PRN; Protocol PRN Reason: Anxiety Stop: 09/06/18 04:30 Last Admin: 07/17/18 12:57 Dose: 0.5 mg Lorazepam (Ativan) 1 mg IM NOW PRN; Protocol PRN Reason: Anxiety Stop: 09/10/18 04:27 Last Admin: 07/12/18 04:52 Dose: 1 mg Olanzapine (Zyprexa) 5 mg PO BID PRN; Protocol PRN Reason: Agitation Stop: 09/06/18 10:37 Last Admin: 07/16/18 20:45 Dose: 5 mg Olanzapine (Zyprexa) 10 mg PO BID JENNY; Protocol Stop: 09/06/18 16:59 Last Admin: 07/17/18 16:21 Dose: 10 mg General: alert, demented HEENT: NC/AT, PERRLA Neck: Supple Lungs: CTAB Cardiovascular: RRR, Normal S1, Normal S2 Abdomen: soft, non-tender, non-distended Internal Medicine Assmt/Plan - Assessment Assessment: PSYCHOSIS AGITATION - Plan Plan: CONTINUE CURRENT ORDERS Nutritional Asmnt/Malnutr-PDOC - Dietary Evaluation Malnutrition Findings (Please click <Entered> for more info): Nutritional Asmnt/Malnutrition Start: 07/09/18 14: 13 Text: Status: Complete Freq: Protocol: Document 07/09/18 14:13 [email or web address] (Rec: 07/09/18 14:25 [email or web address] JUAN JOSÉ) Nutritional Asmnt/Malnutrition Patient General Information Nutritional Screening Consult Diagnosis psychosis Pertinent Medical Hx/Surgical Hx HTN, depression, schizophrenia , GERD, muscle spasm Subjective Information Consult received for pressure ulcers to buttocks and right heel. Pt was seen in bed at time of visit, confused, continues to talk to self. Pt stated she likes juice but called the rest of the food " vomit", food preferences taken . PO intake is 0-25% per EMR. Pt only likes to drink liquids per RN. Current Diet Order/ Nutrition Support low sodium 2gm, cardiac Pertinent Medications vit c Pertinent Labs not indicated Nutritional Hx/Data Height 5 ft 4 in Height (Calculated Centimeters) 162.6 Current Weight (lbs) 120 lb Weight (Calculated Kilograms) 54.4 Weight (Calculated Grams) 85100.1 [place] Body Weight 120 Body Mass Index (BMI) 20.5 Weight Status Approriate GI Symptoms GI Symptoms None Last BM 07/08 Difficult in: None Food Allergies No Skin Integrity/Comment: pressure ulcers to buttocks and right heel, pressure areas right and left lower legs chino 13 Current %PO Negligible < 25% Estimated Nutritional Goals BEE in Kcals: Using Current wt Calories/Kcals/Kg 25-30 Kcals Calculated 1035-2871 Protein: Using Current wt Protein g/k-1.2 Protein Calculated 54-65 Fluid: ml 3522-6866 (1ml/kcal) Nutritional Problem 2. Problem Problem increased nutrient needs Etiology increased metabolic demand for wound healing Signs/Symptoms: pressure ulcers to buttocks and right heel, and pressure areas to right and left lower legs 1. Problem Problem inadequate energy/protein intake Etiology possible changes in appetite and food preference Signs/Symptoms: PO intake 0-25% Malnutrition Alert Is there a minimum of two criteria No selected? Query Text:Check all the applicable criteria. A minimum of two criteria are recommended for diagnosis of either severe or non-severe malnutrition. Malnutrition Related to Morbid Obesity Malnutrition related to morbid obesity No Intervention/Recommendation Comments 1. Continue with low sodium 2gm, cardiac diet as ordered. 2. Add ensure enlive TID for extra kcal and protein 3. Add Jeremias BID for wound healing 4. Monitor PO intake, wt, labs and skin integrity 5. F/U as high risk in 2-3 days Expected Outcomes/Goals Expected Outcomes/Goals 1. PO intake to meet at least 75% of nutritional needs. 2. Wt stability, skin to remain intact, labs to approach WNL. Reviewed by Cecilia Tanner RD
--- NOTE | 2018-07-17 20:52 | Progress Notes ---
DATE: 07/17/2018 SUBJECTIVE: Staff was spoken to. The patient is interviewed. Mood is noted to be irritable. Affect is constricted. The patient is stating that she wants to [facility]lalli everyone because they are not letting her go. The patient's insight and judgment at this time are noted to be still impaired. Impulse control is noted to be poor. Coping skills are also noted to be very poor. No side effects to the medications are noted. The patient is pacing most of the time on the unit. ASSESSMENT: The patient is still psychotic. PLAN: To continue the patient with the supportive therapy and followup. JOB# [id number]
[2018-07-17] MEDS: Hydrocodone/APAP 10 mg/325 mg Tab PO PRN (21:16)
[2018-07-18] MEDS: Hydrocodone/APAP 10 mg/325 mg Tab PO PRN (06:43)
[2018-07-18] MEDS: Multivitamin w/ Minerals Tab PO SCH (10:16)
--- NOTE | 2018-07-18 20:26 | Progress Notes ---
DATE: 07/18/2018 SUBJECTIVE: The patient is seen and interviewed. Case has been discussed with staff. The patient continues to present as irritable and somewhat oppositional. The patient is demanding to be discharged and is verbalizing that she is going to [facility] the hospital and all the providers. The staff indicates the patient's impulse control continues to be problematic and that the patient is pacing on the unit most of the time. Mood is irritable. Affect is constricted. Thought process shows to be argumentative as well as suspicious. The patient is guarded. The patient denied any auditory or visual hallucinations or delusions; however, there is paranoid ideation present. The patient continues to respond behaviorally as being victimized. OBJECTIVE: Mood is irritable. Affect is constricted. Thought process includes possible persecutory delusions. However, the patient is denying any delusions or hallucinations. There is some evidence of continued paranoid ideation. The patient's impulse control be still impaired. ASSESSMENT: The patient continues to be psychotic as well as acting out. PLAN: We will continue to provide limit setting and de-escalation. We provided remotivation for the patient to become compliant and stay compliant with all aspects of her care and treatment. We provided reality orientation, differentiation and integration. We encouraged the patient to verbally contract for safety. We encouraged the patient to demonstrate emotional and self-regulation. We continued with cognitive and behavioral redirection for the patient to focus on the treatment goals. We will continue supportive psychotherapy and follow up with the patient in 2-3 days if the patient is still admitted. JOB# [id number] JESSICA
--- NOTE | 2018-07-19 12:56 | Progress Notes ---
DATE: 07/18/2018 SUBJECTIVE: Staff was spoken to. The patient is interviewed. Mood is noted to be irritable. Affect is constricted. Insight and judgment at this time are noted to be still impaired. Impulse control is noted to be poor. Coping skills are also noted to be very poor. The patient has been, however, not noted to be suicidal or homicidal, and is willing to comply with the treatment and hence it is decided to discharge the patient back to the custodial facility for further followup. [facility]# [id number]
--- NOTE | 2018-07-20 13:10 | Discharge Summary ---
DATE OF DISCHARGE: 07/18/2018 PSYCHIATRIC DISCHARGE SUMMARY IDENTIFYING DATA: The patient is a 58-year-old woman, resident of [facility]. Information obtained by directly interviewing the patient as well as reviewing the admission papers. JUSTIFICATION OF HOSPITALIZATION: The patient is admitted on a voluntary basis in view of her acute psychosis. DIAGNOSES AT THE TIME OF ADMISSION: AXIS I: Schizoaffective disorder. AXIS II: None. AXIS III: Medical diagnosis as per Dr. Aquino. HISTORY OF PRESENT ILLNESS: Please refer to the 07/08/2018 dictation done by me. Blood work done at the time of the hospitalization has been reviewed by Dr. Aquino. HOSPITAL COURSE AND RESPONSE TO TREATMENT: The patient has been observed on inpatient unit, provided with supportive psychotherapy. The patient has been very irritable, angry, screaming for most of the time. The patient has multiple ulcerations and they have to be cleaned and the patient has to be closely monitored. The patient has been placed on olanzapine that was given 10 mg twice a day and Benadryl 25 mg twice a day. In view of the mood swings, the patient has been placed on the Depakote, which was given 500 mg twice a day. With these medications, the patient has been observed and the patient has been placed on the hydrocodone for the pain and the patient has been encouraged to participate in the groups and verbalize the concerns and finally the patient started to stabilize and was discharged on 07/18/2018 with recommendation that she is going to be seeking treatment on an outpatient basis. MENTAL STATUS EXAMINATION: At the time of discharge, the patient's mood is noted to be less irritable. Affect is appropriate. Not suicidal or homicidal. Insight and judgment are noted to be improving. Impulse control is also noted to be fair. The patient is not presenting with any threats to harm self or others at the time of the discharge. CONDITION: At the time of discharge is noted to be stable. DIAGNOSES AT THE TIME OF DISCHARGE: AXIS I: Schizoaffective disorder. AXIS II: None. AXIS III: As per Dr. Aquino. AFTERCARE PLAN: The patient is discharged to a senior care facility for further followup. [facility]# [id number]
== END 2018-07-18 15:00 | DRG 885 ==
LOC: ER 01:15 → GERO2 02:03 → GERO 07-09 17:29
PROVIDERS: ADMIT Psychiatry & Neurology Psychiatry; ATTEND Psychiatry & Neurology Psychiatry
DX: F25.9 Schizoaffective disorder, unspecified (principal); G82.20 Paraplegia, unspecified; F29 Unspecified psychosis not due to a substance or known physiological condition; I10 Essential (primary) hypertension; K21.9 Gastro-esophageal reflux disease without esophagitis; M19.90 Unspecified osteoarthritis, unspecified site; I48.91 Unspecified atrial fibrillation
CPT/HCPCS: 83036-90; G0410; J1200; J1630; J2060; J7051; Z7610

== ENCOUNTER 2019-07-29 18:37 | Inpatient (IN) | payer MEDICARE, OTHER ==
[2019-07-30 03:59] VITALS: BP 00/00
[2019-07-30] MEDS ORDERED: Magnesium Hydroxide (MOM) 30 mL UDC PO PRN (04:09)
[2019-07-30] MEDS ORDERED: Maalox 30 mL Cup PO PRN (04:09)
[2019-07-30] MEDS ORDERED: LEVETIRACETAM PO SCH (09:00)
[2019-07-30] MEDS ORDERED: ZINC SULFATE PO SCH (09:00)
[2019-07-30] MEDS: Multivitamin w/ Minerals Tab PO SCH (13:40)
[2019-07-30] MEDS: Lactulose 10 Gm/15 mL 30mL UDC PO SCH ×3 (13:40→20:27)
[2019-07-30] MEDS ORDERED: Non-Formulary Item 1 EA (Rivaroxaban [Xarelto] 1 TAB) PO SCH (17:00)
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
[2019-07-31] MEDS: Multivitamin w/ Minerals Tab PO SCH (08:12)
[2019-07-31] MEDS: Lactulose 10 Gm/15 mL 30mL UDC PO SCH ×3 (08:12→21:16)
[2019-07-31] MEDS: FLUPHENAZINE HCL 2.5 MG/ML IM SCH (09:02)
--- NOTE | 2019-07-31 15:06 | Progress Notes ---
DATE: 07/31/2019 SUBJECTIVE: The patient was sitting up in the middle of her bed, leaning over to the right side and spitting out phlegm on the floor. The patient asked to have her wheelchair move closer to her, the patient stated that she wants to get up. When asked her to wait for the staff to mop the floor so that the staff can assist her up in the wheelchair, the patient was impatient and wanted the wheelchair to be moved closer to her immediately. When asked how she slept last night, the patient indicated that she slept okay. The patient remained very impatient and suspicious, guarded. OBJECTIVE: The staff reported that the patient continued to have episodes of yelling and talking loudly. The patient did sleep for a period of time. Yesterday after she was assessed by this rider, the patient became more agitated and had to be put in time-out. The patient was banging on the door constantly. The patient was given Zyprexa 5 mg IM. The patient calmed down after a while. ASSESSMENT: 1. Schizophrenia, chronic, paranoid type, in acute exacerbation. 2. 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 3. Impulse control disorder, not otherwise specified. 4. Personality change due to medical condition. PLAN: We will start the patient on Prolixin IM 5 mg q. p.m. today and continue for 7 days. On the eighth day, we will give Prolixin Decanoate 25 mg IM and every 14 days thereafter. At this point, we will monitor the patient and given Ativan p.r.n. or Zyprexa IM as needed. [facility]# [id number]
--- NOTE | 2019-07-31 17:54 | Internal Medicine Prog Note ---
Internal Medicine Subjective - Subjective Service Date: 07/31/19 Patient seen and examined:: with staff Patient is:: awake Per staff patient has:: tolerating meds Internal Medicine Objective - Physical Exam Vitals and I&O: Vital Signs Temp 98.2 F 07/31/19 14:00 Pulse 20 07/31/19 14:00 Resp 98 07/31/19 14:00 BP 125/56 07/31/19 14:00 Pulse Ox 98 07/31/19 14:00 Intake & Output 07/30/19 07/31/19 07/31/19 18:59 06:59 18:59 Intake Total 800 240 120 Balance 800 240 120 Intake: Oral 800 240 120 Other: # Voids 3 2 2 # Bowel Movements 1 2 2 Stool Characteristics Soft Soft Active Medications: Current Medications Acetaminophen (Tylenol) 650 mg PO Q4H PRN PRN Reason: Pain (Mild 1-3) Stop: 09/28/19 04:08 Acetaminophen (Tylenol) 650 mg PO Q4H PRN PRN Reason: TEMP.>100.4 Stop: 09/28/19 04:14 Al Hydrox/Mg Hydrox/Simethicone (Maalox) 30 ml PO Q4HR PRN PRN Reason: GI DISTRESS Stop: 09/28/19 04:08 Ascorbic Acid (Vitamin C) 500 mg PO DAILY [facility] Stop: 09/28/19 08:59 Last Admin: 07/31/19 08:12 Dose: 500 mg Docusate Sodium (Colace) 100 mg PO BID [facility] Stop: 09/28/19 08:59 Last Admin: 07/31/19 16:39 Dose: 100 mg Fluphenazine HCl (Prolixin) 5 mg IM DAILY [facility]; Protocol Stop: 08/06/19 12:00 Last Admin: 07/31/19 09:02 Dose: 5 mg Lactulose (Cephulac) 30 gm PO TID [facility] Stop: 09/28/19 08:59 Last Admin: 07/31/19 13:32 Dose: 30 gm Levetiracetam (Keppra) 500 mg PO DAILY [facility] Stop: 09/28/19 08:59 Last Admin: 07/31/19 08:12 Dose: 500 mg Lorazepam (Ativan) 0.5 mg PO Q4HR PRN; Protocol PRN Reason: Anxiety Stop: 08/29/19 04:08 Last Admin: 07/30/19 17:39 Dose: 0.5 mg Magnesium Hydroxide (Milk Of Magnesia) 30 ml PO HS PRN PRN Reason: Constipation Nitroglycerin (Nitrostat) 0.4 mg SL Q5MIN PRN PRN Reason: Chest Pain Stop: 09/28/19 04:56 Olanzapine (Zyprexa) 10 mg PO HS [facility]; Protocol Stop: 09/28/19 20:59 Last Admin: 07/30/19 20:28 Dose: 10 mg Rivaroxaban (Xarelto) 10 mg PO QPM [facility] Stop: 09/28/19 16:59 Last Admin: 07/31/19 16:38 Dose: 10 mg Senna (Senna) 8.6 mg PO HS [facility] Stop: 09/28/19 20:59 Last Admin: 07/30/19 20:28 Dose: 8.6 mg Trazodone HCl (Desyrel) 50 mg PO HS [facility]; Protocol Stop: 09/28/19 20:59 Last Admin: 07/30/19 20:29 Dose: 50 mg Zinc Sulfate (Zinc Sulfate) 220 mg PO DAILY [facility] Stop: 09/28/19 08:59 Last Admin: 07/31/19 08:12 Dose: 220 mg Zolpidem Tartrate (Ambien) 5 mg PO HS PRN PRN Reason: Insomnia Stop: 09/28/19 04:08 General: alert, demented HEENT: NC/AT, PERRLA Neck: Supple Lungs: CTAB Cardiovascular: RRR, Normal S1, Normal S2 Abdomen: soft, non-tender, non-distended Extremities: excoriation Neurological: alert Internal Medicine Assmt/Plan - Assessment Assessment: Agitation, history of seizures and psychosis. - Plan Plan: PLAN: We will continue the patient's home medications. Fall precautions will be initiated. We will continue to follow this patient.
--- NOTE | 2019-07-31 21:38 | Consultation ---
DATE OF CONSULTATION: 07/31/2019 REFERRING PHYSICIAN: Stan Wu M.D. TYPE OF CONSULTATION: Psychology. HISTORY OF PRESENT ILLNESS: The patient is a 59-year-old female who is known to this manual writer from 2 previous hospitalizations here on the geropsychiatric unit. The patient is being admitted for increased psychotic symptoms with agitated and aggressive behavior. The following is by record review and by the patient's self report. The staff at the patient's facility, which is [place], stated that the patient was trying to hit the staff. Upon interview, the patient seemed to be a poor historian. The patient was accusing someone of kidnapping her against her will. The patient was unable to state who that is or where she was abducted to. The patient is going off on a tangent with rambling speech and disorganized thoughts with derailments. The patient denied any suicidal ideation at first, but did not answer the questions about having a plan or intention. The patient was unable to verbally contract for safety. PAST MEDICAL HISTORY: Please see history and physical by Dr. Raoms. PAST PSYCHIATRIC HISTORY: The patient has a long history of schizophrenia, chronic paranoid type. The patient is conserved. The patient has multiple previous psychiatric hospitalizations. The patient is under the care of Dr. Wu at her facility. It is unknown whether the patient is receiving psychology services there. MEDICATIONS: Please see medication reconciliation. ALLERGIES: PENICILLIN. SUBSTANCE ABUSE HISTORY: The patient denied any alcohol or illicit drug use. The patient states she used to be a smoker and smoked more than a pack a day. The patient did not state when she quit or how long she has been abstinent from tobacco. PSYCHOSOCIAL HISTORY: The patient is a high school graduate. The patient stated that she went to college. The patient did not state what college or whether she has a college degree. The patient states that she has been 10 times and that she is in touch with 2 of her husbands. 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 The patient is . The patient states that she was raised as a Worship. The patient's conservator is Eileen Lo. The patient did not respond to the questions about returning to her placement. MENTAL STATUS EXAMINATION: The patient appears to be her stated age. The patient's attitude is superficially cooperative. Eye contact is intermittent. Speech is loud and rambling. Mood is fluctuating. Apparently, there seems to be difficulty for the patient to verbalize coherent responses to the clinical questions. Most of the clinical interview questions had to be repeated. There was some confusion with high distractibility. Thought process also includes derailments and disorganization. The patient denied any hallucinations, i.e., auditory or visual. The patient denied any suicidal ideation, plan or intention. There is evidence of paranoid ideation. The patient continued to claim that she had been kidnapped by someone and was taken somewhere, but was unable to give any specific information. The patient's impulse control is poor and inadequate. Concentration is fair to poor. The patient was able to sustain focus at times, but is highly distractible. Sensorium is alert and oriented to self and place. The patient was able to repeat 3 items given to her the first time and recall those 3 items after several minutes. Immediate and short term memory seemed to be intact. Long-term memory needs further evaluation. The patient did not participate in the interpretation of proverbs. Insight is impaired. Judgment is impaired. DIAGNOSTIC IMPRESSION AXIS I: 1. History of schizophrenia, chronic, paranoid type, in acute exacerbation. 2. 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 3. Impulse control disorder, not otherwise specified. 4. Personality change due to medical condition. AXIS II: Deferred. AXIS III: Per Dr. Ramos. PLAN: The patient has been seen by Dr. Wu for psychiatric evaluation and for the management of the patient's psychotropic medications. According to record review and to the staff, the patient had been refusing her medications; therefore, the attending psychiatrist indicates the patient will be started on Prolixin IM 5 mg q.p.m. x 7 days and followed with Prolixin Decanoate 25 mg IM after the 8th day and then 14 days interval thereafter. Zyprexa is being discontinued. This manual writer will provide supportive psychotherapy to include reality orientation, reality differentiation and reality integration. We will provide motivational enhancement and positive reinforcement for the patient to become compliant and stay compliant with all aspects of her care and treatment and specifically her medications. The patient has a history of going off her medications and declining them. We will also encourage the patient to verbally contract for safety and provide that opportunity on a daily basis. The patient will be monitored closely, and we will provide coping strategies for chronic severe mental illness and encourage the patient to verbalize her concerns versus acting out. We will provide de-escalation and behavioral management with respect to the patient's striking out at staff members and her history of yelling and screaming episodes. The patient will be ready to discharge once she is no longer a threat to others and to self. Thank you, Dr. Wu for this consult and the opportunity to participate with you in this patient's care. JOB# [id number] JESSICA
[2019-08-01] MEDS: Lactulose 10 Gm/15 mL 30mL UDC PO SCH ×4 (02:56→21:29)
--- NOTE | 2019-08-01 08:33 | Progress Notes ---
DATE: 08/01/2019 SUBJECTIVE: The patient was seen in her room. The patient is awake, appears to be guarded, easily gets frustrated, suspicious and paranoid. Otherwise, the patient appears to be in no acute distress. OBJECTIVE: VITAL SIGNS: Temperature 98.1, heart rate 87, blood pressure 135/54, respirations 20, 97% on room air. HEENT: Head is atraumatic and normocephalic. Eyes: Bilateral conjunctivae are clear. Bilateral pupils equally round and reactive. NECK: Supple. No JVD. CARDIOVASCULAR: S1 and S2, without murmur. PULMONARY: Clear to auscultation. GASTROINTESTINAL: Soft and nontender without guarding. Positive bowel sounds. MUSCULOSKELETAL: No clubbing. No cyanosis noted. ASSESSMENT: 1. Schizophrenia. 2. History of seizure disorder. PLAN: We will continue to keep the patient to inpatient Psychiatric Unit. We will put the patient on fall precautions, put the patient on seizure precautions, put the patient on aspiration precautions. Treatment plans were discussed with the patient's nurse. Treatment plans were discussed with Dr. Aquino. JOB# [id number]
[2019-08-01] MEDS: FLUPHENAZINE HCL 2.5 MG/ML IM SCH (10:00)
[2019-08-01] MEDS: Multivitamin w/ Minerals Tab PO SCH (10:13)
--- NOTE | 2019-08-01 16:39 | Progress Notes ---
DATE: 08/01/2019 SUBJECTIVE: The patient was in the wheelchair in the hallway, propelling herself about. The patient was cheerful and pleasant when talked to; however, the patient remained quite delusional. The patient continued to talk about people beating her up abusing her. The patient reported that she slept okay and had her breakfast. OBJECTIVE: The patient continued to respond to internal stimuli, talking to herself as well as making false accusations of different things. Staff reported that the patient continued to get agitated easily. The patient continued to want to smoke. The patient has been throwing up after she ate because she went out to smoke right after eating. The patient, however, has been taking her medications. The patient slept about 6 hours last night. ASSESSMENT: 1. Schizophrenia, chronic, paranoid type, in acute exacerbation. 2. 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 3. Impulse control disorder, not otherwise specified. 4. Personality change due to medical condition. PLAN: We will continue the patient on Prolixin IM 5 mg q.p.m. to complete 7 days, then start Prolixin Decanoate on the eighth day. If the patient is doing better on the Prolixin IM, we will taper off of Zyprexa. [facility]# [id number]
[2019-08-02] MEDS: Multivitamin w/ Minerals Tab PO SCH (09:40)
[2019-08-02] MEDS: Lactulose 10 Gm/15 mL 30mL UDC PO SCH ×3 (09:40→21:03)
[2019-08-02] MEDS: FLUPHENAZINE HCL 2.5 MG/ML IM SCH ×2 (09:42→10:29)
--- NOTE | 2019-08-02 16:19 | Internal Medicine Prog Note ---
Internal Medicine Subjective - Subjective Service Date: 08/02/19 Patient seen and examined:: with staff, chart reviewed Patient is:: awake, verbal, in wheelchair, confused Patient Complaints of:: other Per staff patient has:: no adverse event, tolerating meds Internal Medicine Objective - Physical Exam Vitals and I&O: Vital Signs Temp 984 F 08/02/19 15:05 Pulse 82 08/02/19 15:05 Resp 18 08/02/19 15:05 BP 112/76 08/02/19 15:05 Pulse Ox 93 08/02/19 15:05 Intake & Output 08/01/19 08/02/19 08/02/19 18:59 06:59 18:59 Intake Total 950 400 Balance 950 400 Intake: Oral 950 400 Other: # Voids 5 1 # Bowel Movements 2 0 Stool Characteristics Soft Active Medications: Current Medications Acetaminophen (Tylenol) 650 mg PO Q4H PRN PRN Reason: Pain (Mild 1-3) Stop: 09/28/19 04:08 Last Admin: 08/02/19 10:33 Dose: 650 mg Acetaminophen (Tylenol) 650 mg PO Q4H PRN PRN Reason: TEMP.>100.4 Stop: 09/28/19 04:14 Al Hydrox/Mg Hydrox/Simethicone (Maalox) 30 ml PO Q4HR PRN PRN Reason: GI DISTRESS Stop: 09/28/19 04:08 Ascorbic Acid (Vitamin C) 500 mg PO DAILY [facility] Stop: 09/28/19 08:59 Last Admin: 08/02/19 09:41 Dose: 500 mg Docusate Sodium (Colace) 100 mg PO BID [facility] Stop: 09/28/19 08:59 Last Admin: 08/02/19 09:40 Dose: 100 mg Fluphenazine Decanoate (Prolixin Deconate) 25 mg IM [id number] [facility]; Protocol Stop: 10/05/19 16:59 Fluphenazine HCl (Prolixin) 5 mg IM DAILY [facility]; Protocol Stop: 08/06/19 12:00 Last Admin: 08/02/19 10:29 Dose: 5 mg Lactulose (Cephulac) 30 gm PO TID [facility] Stop: 09/28/19 08:59 Last Admin: 08/02/19 13:57 Dose: 30 gm Levetiracetam (Keppra) 500 mg PO DAILY [facility] Stop: 09/28/19 08:59 Last Admin: 08/02/19 09:40 Dose: 500 mg Lorazepam (Ativan) 0.5 mg PO Q4HR PRN; Protocol PRN Reason: Anxiety Stop: 08/29/19 04:08 Last Admin: 07/30/19 17:39 Dose: 0.5 mg Magnesium Hydroxide (Milk Of Magnesia) 30 ml PO HS PRN PRN Reason: Constipation Nitroglycerin (Nitrostat) 0.4 mg SL Q5MIN PRN PRN Reason: Chest Pain Stop: 09/28/19 04:56 Olanzapine (Zyprexa) 10 mg PO HS [facility]; Protocol Stop: 09/28/19 20:59 Last Admin: 08/01/19 21:29 Dose: 10 mg Promethazine HCl/Dextromethorphan (Phenergan Dm 6.25/15mg-5 Ml) 10 ml PO TID [facility] Stop: 08/05/19 14:01 Rivaroxaban (Xarelto) 10 mg PO QPM [facility] Stop: 09/28/19 16:59 Last Admin: 08/01/19 17:34 Dose: 10 mg Senna (Senna) 8.6 mg PO HS [facility] Stop: 09/28/19 20:59 Last Admin: 08/01/19 21:29 Dose: 8.6 mg Trazodone HCl (Desyrel) 50 mg PO HS [facility]; Protocol Stop: 09/28/19 20:59 Last Admin: 08/01/19 21:29 Dose: 50 mg Zinc Sulfate (Zinc Sulfate) 220 mg PO DAILY [facility] Stop: 09/28/19 08:59 Last Admin: 08/02/19 09:41 Dose: 220 mg Zolpidem Tartrate (Ambien) 5 mg PO HS PRN PRN Reason: Insomnia Stop: 09/28/19 04:08 Last Admin: 08/01/19 21:29 Dose: 5 mg Physical Exam: Patient needs close monitoring, continues to be delusional and stating people are trying to beat her. General: alert, demented HEENT: NC/AT, PERRLA Neck: Supple Lungs: CTAB Cardiovascular: RRR, Normal S1, Normal S2 Abdomen: soft, non-tender, non-distended Extremities: excoriation Neurological: alert Internal Medicine Assmt/Plan - Assessment Assessment: Paraplegia. Seizures. Psychosis. Constipation. Schizophrenia, chronic, paranoid type. Impulse control disorder. 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 - Plan Plan: Continuation of care. Psych management as per Psych. Monitor Labs and vitals. Continue present meds as directed. Monitor Diet/Nutritional support. Pain Management. Physical therapy/Occupational therapy. Safety precaution. Supportive care. Fall precaution, frequent nursing rounds, and as needed restraints to prevent fall. Continue collaborating with consulting specialists, case management and nursing team. Will Monitor patient and continue current treatment plan as ordered. Nutritional Asmnt/Malnutr-PDOC - Dietary Evaluation Malnutrition Findings (Please click <Entered> for more info): see orders.
--- NOTE | 2019-08-02 18:05 | Progress Notes ---
DATE: 08/02/2019 SUBJECTIVE: The patient was in the wheelchair in the hallway in front of nursing station. The patient reported that she has not been changed in 2 hours. When told that we will have 2 female staff change her right now, the patient became angry and started yelling that she does not want any female staff to touch her. The patient stated that she wants 2 tall men to do that for her. When asked if it will be okay for a man and a woman to do that, the patient thought about it and said it is okay. The patient continued to respond to internal stimuli, talking to herself constantly. The patient reported that she ate and slept okay. OBJECTIVE: The patient continued to exhibit psychotic symptoms, talking to herself constantly. The patient continued to get agitated easily. The staff reported that the patient ate reasonably well and slept about 6 hours. The staff reported that the patient did not throw up the whole day yesterday. The staff reported that the patient refused her Prolixin injection this morning, informed staff that patient is conserved, therefore, the patient is not able to refuse her injection. The staff went back to give it to the patient. ASSESSMENT: 1. Schizophrenia, chronic paranoid type, in acute exacerbation. 2. 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 3. Impulse control disorder, not otherwise specified. 4. Personality change due to medical condition. PLAN: We will continue the patient on current medications of Prolixin 5 mg IM daily to complete the 7 days, then on the eighth day to give Prolixin Decanoate 25 mg IM. We will continue the patient with Zyprexa 10 mg at bedtime. When the patient shows improvement in her condition, we will consider tapering off of Zyprexa, so that the patient could be maintained only on one antipsychotic. JOB# [id number] JESSICA
[2019-08-02] MEDS: Promethazine DM 6.25/15mg-5mL 5 ML SYR PO SCH (21:22)
[2019-08-03] MEDS: Multivitamin w/ Minerals Tab PO SCH (08:38)
[2019-08-03] MEDS: Promethazine DM 6.25/15mg-5mL 5 ML SYR PO SCH ×3 (08:38→21:21)
[2019-08-03] MEDS: Lactulose 10 Gm/15 mL 30mL UDC PO SCH ×3 (08:39→21:21)
[2019-08-03] MEDS: FLUPHENAZINE HCL 2.5 MG/ML IM SCH (10:07)
--- NOTE | 2019-08-03 12:58 | Internal Medicine Prog Note ---
Internal Medicine Subjective - Subjective Service Date: 08/03/19 Patient seen and examined:: with staff Patient is:: awake, verbal, in wheelchair, confused Patient Complaints of:: other Per staff patient has:: no adverse event, tolerating meds Internal Medicine Objective - Physical Exam Vitals and I&O: Vital Signs Temp 97.2 F 08/03/19 06:34 Pulse 82 08/03/19 06:34 Resp 20 08/03/19 06:34 BP 134/91 08/03/19 06:34 Pulse Ox 94 08/03/19 06:34 Intake & Output 08/02/19 08/03/19 08/03/19 18:59 06:59 18:59 Intake Total 850 240 Balance 850 240 Intake: Oral 850 240 Other: # Voids 4 2 # Bowel Movements 2 Active Medications: Current Medications Acetaminophen (Tylenol) 650 mg PO Q4H PRN PRN Reason: Pain (Mild 1-3) Stop: 09/28/19 04:08 Last Admin: 08/03/19 02:17 Dose: 650 mg Acetaminophen (Tylenol) 650 mg PO Q4H PRN PRN Reason: TEMP.>100.4 Stop: 09/28/19 04:14 Acetaminophen/Hydrocodone Bitart ([place] 5mg/325mg) 1 tab PO Q6H PRN PRN Reason: Pain (Moderate 4-6) Stop: 10/02/19 06:57 Acetaminophen/Hydrocodone Bitart ([place] 10 Mg/325 Mg) 1 tab PO Q6H PRN PRN Reason: Pain (Severe 7-10) Stop: 10/02/19 06:58 Al Hydrox/Mg Hydrox/Simethicone (Maalox) 30 ml PO Q4HR PRN PRN Reason: GI DISTRESS Stop: 09/28/19 04:08 Ascorbic Acid (Vitamin C) 500 mg PO DAILY [facility] Stop: 09/28/19 08:59 Last Admin: 08/03/19 08:38 Dose: 500 mg Docusate Sodium (Colace) 100 mg PO BID [facility] Stop: 09/28/19 08:59 Last Admin: 08/03/19 08:38 Dose: 100 mg Fluphenazine Decanoate (Prolixin Deconate) 25 mg IM [id number] [facility]; Protocol Stop: 10/05/19 16:59 Fluphenazine HCl (Prolixin) 5 mg IM DAILY [facility]; Protocol Stop: 08/06/19 12:00 Last Admin: 08/03/19 10:07 Dose: 5 mg Lactulose (Cephulac) 30 gm PO TID JENNY Stop: 09/28/19 08:59 Last Admin: 08/03/19 08:39 Dose: Not Given Levetiracetam (Keppra) 500 mg PO DAILY [facility] Stop: 09/28/19 08:59 Last Admin: 08/03/19 08:38 Dose: 500 mg Lorazepam (Ativan) 0.5 mg PO Q4HR PRN; Protocol PRN Reason: Anxiety Stop: 08/29/19 04:08 Last Admin: 07/30/19 17:39 Dose: 0.5 mg Magnesium Hydroxide (Milk Of Magnesia) 30 ml PO HS PRN PRN Reason: Constipation Nitroglycerin (Nitrostat) 0.4 mg SL Q5MIN PRN PRN Reason: Chest Pain Stop: 09/28/19 04:56 Olanzapine (Zyprexa) 10 mg PO HS [facility]; Protocol Stop: 09/28/19 20:59 Last Admin: 08/02/19 21:05 Dose: 10 mg Promethazine HCl/Dextromethorphan (Phenergan Dm 6.25/15mg-5 Ml) 10 ml PO TID [facility] Stop: 08/05/19 14:01 Last Admin: 08/03/19 08:38 Dose: 10 ml Rivaroxaban (Xarelto) 10 mg PO QPM [facility] Stop: 09/28/19 16:59 Last Admin: 08/02/19 16:10 Dose: 10 mg Senna (Senna) 8.6 mg PO HS [facility] Stop: 09/28/19 20:59 Last Admin: 08/02/19 21:04 Dose: 8.6 mg Trazodone HCl (Desyrel) 50 mg PO HS [facility]; Protocol Stop: 09/28/19 20:59 Last Admin: 08/02/19 21:05 Dose: 50 mg Zinc Sulfate (Zinc Sulfate) 220 mg PO DAILY [facility] Stop: 09/28/19 08:59 Last Admin: 08/03/19 08:38 Dose: 220 mg Zolpidem Tartrate (Ambien) 5 mg PO HS PRN PRN Reason: Insomnia Stop: 09/28/19 04:08 Last Admin: 08/02/19 22:25 Dose: 5 mg Physical Exam: Patient needs close monitoring, continues to be very agitated and paranoid. General: alert, demented HEENT: NC/AT, PERRLA Neck: Supple Lungs: CTAB Cardiovascular: RRR, Normal S1, Normal S2 Abdomen: soft, non-tender, non-distended Extremities: excoriation Neurological: alert Internal Medicine Assmt/Plan - Assessment Assessment: Paraplegia. Seizures. Psychosis. Constipation. Schizophrenia, chronic, paranoid type. Impulse control disorder. 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 - Plan Plan: Continuation of care. Psych management as per Psych. Monitor Labs and vitals. Continue present meds as directed. Monitor Diet/Nutritional support. Pain Management. Safety precaution. Supportive care. Fall precaution, frequent nursing rounds, and as needed restraints to prevent fall. Continue collaborating with consulting specialists, case management and nursing team. Will Monitor patient and continue current treatment plan as ordered. Nutritional Asmnt/Malnutr-PDOC - Dietary Evaluation Malnutrition Findings (Please click <Entered> for more info): Nutritional Asmnt/Malnutrition Start: 08/03/19 11: 51 Text: Status: Complete Freq: Protocol: Document 08/03/19 11:51 BOBBY (Rec: 08/03/19 11:54 [email or web address]) Nutritional Asmnt/Malnutrition Patient General Information Nutritional Screening Moderate Risk Diagnosis Psychosis Pertinent Medical Hx/Surgical Hx Paraplegia, Seizures, Constipation, Psychosis Subjective Information Pt is a 59-year-old female admitted on 07/30 d/t psychosis . Pt is eating an estimated 64 % of meals x3 days Per Meal/ Nutrition Activity Record. Dietary is currently providing an estimated 2150 kcals and 90 gm Pro, per Pt PO intake this is providing an estimated 1380 kcals and 58gm Pro to meet 89% kcal and 97% Pro needs. Add Jeremias BID to support wound healing. Will monitor pt tolerance and wound healing progress. Anthropometrics HT: 54 WT: 138 LB (62.73 kg) BMI: 23.78 (Normal) GI/ Skin Integrity GI: WNL, Soft, Flat, Non- tender BM: 08/02 x2 I/O: 1090/Not Noted Skin: Reddened, Lower LT Buttocks Maceration, Pale, Ulceration Ernie: 13 Diet Order: Regular Estimated Energy Needs: ( Geriatric, CBW) 9158-5001 kcals (25-30 kcals/ kg) 60-75g Pro (1.0-1.2 g/kg) 5344-6307 ml (25-30 ml/kg) Current Diet Order/ Nutrition Support Regular Pertinent Medications Maalox (PRN), Vitamin C, Colace, Cephulac, MOM (PRN) Pertinent Labs 07/29: Na 132, Glucose 136, Albumin 3.2, HDL Chol 40 Nutritional Hx/Data Height 1.63 m Height (Calculated Centimeters) 162.6 Current Weight (lbs) 62.596 kg Weight (Calculated Kilograms) 62.6 Weight (Calculated Grams) 94666.7 [place] Body Weight 115 LB (52.27 kg) % [place] Body Weight 120 Body Mass Index (BMI) 23.6 Weight Status Approriate GI Symptoms Last BM 08/02 x2 Skin Integrity/Comment: Skin: Reddened, Lower LT Buttocks Maceration, Pale, Ulceration Ernie: 13 Add Jeremias BID to support wound healing. Will monitor pt tolerance and wound healing progress. Nutritional Problem 1. Problem Problem Increased mineral/vitamin needs Etiology r/t wound healing Signs/Symptoms: aeb Reddened, Lower LT Buttocks Maceration, Pale, Ulceration and Ernie Score 13 . Intervention/Recommendation Comments 1. Continue Regular diet as tolerated. 2. Add Jeremias BID to support wound healing (completed). Expected Outcomes/Goals Expected Outcomes/Goals 1.PO intake to continue to meet >75% of estimated nutritional needs. 2.Monitor PO intake, wt, nutrition related labs, and skin integrity to trend WNL. 3.F/U as moderate risk in 3-5 days, 08/06-08/08.
[2019-08-03] MEDS: Hydrocodone/APAP 5mg/325mg Tab PO PRN ×2 (13:20→21:41)
--- NOTE | 2019-08-03 20:41 | Progress Notes ---
DATE: 08/03/2019 PSYCHIATRIC PROGRESS NOTE SUBJECTIVE: Staff was spoken to. The patient is interviewed. Mood is noted to be irritable. Affect is constricted. The patient continues to be very paranoid. The patient has been pacing on the unit. Coping skills at this time are noted to be very poor. The patient is very irritable this afternoon. No side effects to the medications are noted. ASSESSMENT: The patient is still psychotic. PLAN: To continue the patient with the current medications and follow. JOB# [id number]
--- NOTE | 2019-08-03 21:40 | Progress Notes ---
DATE: 08/03/2019 PSYCHOLOGY PROGRESS NOTE SUBJECTIVE: The patient is seen in her roomup in her wheelchair. Case is discussed with staff. The patient presents as confused and is staring at the ground. Eye contact is avoidant. The patient after 2 clinical questions had been asked became irritated and began to yell. The patient continues to respond to internal stimuli and is talking to herself. OBJECTIVE: Mood is angry and irritable. Affect is mood congruent. The patient is easily agitated. The patient's paranoid delusions persist, i.e., she believes the staff are out to hurt her. The patient is responding to internal stimuli and may be experiencing auditory hallucinations. Staff reports the patient has refused medication at times. ASSESSMENT: The patient's psychosis persists with no improvement in impulse control. PLAN: We provided de-escalation as well as boundary definitions for the patient to increase her impulse control and more appropriately interact with staff. We provided remotivation and positive reinforcement for the patient to become compliant with all aspects of her care and treatment and to follow through with staff direction. We provided reality orientation, differentiation and integration. We provided coping strategies for chronic severe mental illness. We encouraged the patient to verbalize her concerns appropriately to staff versus acting out verbally and aggressively. We will follow up in 2-3 days to continue the present treatment if the patient is admitted on the unit and also if she is able to demonstrate the capacity to benefit from psychology services. JOB# [id number] JESSICA
[2019-08-04] MEDS: Hydrocodone/APAP 5mg/325mg Tab PO PRN ×2 (06:13→13:08)
[2019-08-04] MEDS: Promethazine DM 6.25/15mg-5mL 5 ML SYR PO SCH ×3 (08:54→20:31)
[2019-08-04] MEDS: Multivitamin w/ Minerals Tab PO SCH (08:55)
[2019-08-04] MEDS: FLUPHENAZINE HCL 2.5 MG/ML IM SCH (09:30)
[2019-08-04] MEDS: Lactulose 10 Gm/15 mL 30mL UDC PO SCH ×3 (09:31→20:32)
[2019-08-04] MEDS: Hydrocodone/APAP 10 mg/325 mg Tab PO PRN (19:50)
[2019-08-05] MEDS: Lactulose 10 Gm/15 mL 30mL UDC PO SCH ×4 (01:40→20:41)
[2019-08-05] MEDS: Hydrocodone/APAP 10 mg/325 mg Tab PO PRN ×3 (01:58→20:01)
--- NOTE | 2019-08-05 03:01 | Progress Notes ---
DATE: 08/04/2019 SUBJECTIVE: Staff was spoken to. The patient is interviewed. Mood is noted to be irritable. Affect is constricted. Insight and judgment at this time are noted to be still impaired. Impulse control is noted to be limited. The patient is stating that she needs her morphine. She needs her seizure medication. She needs her hashish. The patient has no insight into her illness. Continues to be very paranoid. The patient has been whining most of the time, no insight is noted. No side effects to the medications are noted. ASSESSMENT: The patient is still psychotic and impulsive. PLAN: To continue the patient with the current medications and follow. JOB# [id number]
[2019-08-05] MEDS: Promethazine DM 6.25/15mg-5mL 5 ML SYR PO SCH ×2 (08:49→14:33)
[2019-08-05] MEDS: Multivitamin w/ Minerals Tab PO SCH (08:50)
[2019-08-05] MEDS: FLUPHENAZINE HCL 2.5 MG/ML IM SCH (09:39)
--- NOTE | 2019-08-05 13:30 | Internal Medicine Prog Note ---
Internal Medicine Subjective - Subjective Service Date: 08/05/19 Patient is:: awake, verbal, in wheelchair, confused Patient Complaints of:: other Per staff patient has:: no adverse event, tolerating meds Internal Medicine Objective - Physical Exam Vitals and I&O: Vital Signs Temp 98.6 F 08/05/19 05:46 Pulse 92 08/05/19 05:46 Resp 19 08/05/19 05:46 BP 118/80 08/05/19 05:46 Pulse Ox 94 08/05/19 05:46 Intake & Output 08/04/19 08/05/19 08/05/19 18:59 06:59 18:59 Intake Total 700 120 Balance 700 120 Intake: Oral 700 120 Other: # Voids 3 # Bowel Movements 1 2 Active Medications: Current Medications Acetaminophen (Tylenol) 650 mg PO Q4H PRN PRN Reason: Pain (Mild 1-3) Stop: 09/28/19 04:08 Last Admin: 08/03/19 02:17 Dose: 650 mg Acetaminophen (Tylenol) 650 mg PO Q4H PRN PRN Reason: TEMP.>100.4 Stop: 09/28/19 04:14 Acetaminophen/Hydrocodone Bitart ([place] 5mg/325mg) 1 tab PO Q6H PRN PRN Reason: Pain (Moderate 4-6) Stop: 10/02/19 06:57 Last Admin: 08/04/19 13:08 Dose: 1 tab Acetaminophen/Hydrocodone Bitart ([place] 10 Mg/325 Mg) 1 tab PO Q6H PRN PRN Reason: Pain (Severe 7-10) Stop: 10/02/19 06:58 Last Admin: 08/05/19 10:26 Dose: 1 tab Al Hydrox/Mg Hydrox/Simethicone (Maalox) 30 ml PO Q4HR PRN PRN Reason: GI DISTRESS Stop: 09/28/19 04:08 Ascorbic Acid (Vitamin C) 500 mg PO DAILY [facility] Stop: 09/28/19 08:59 Last Admin: 08/05/19 08:50 Dose: 500 mg Docusate Sodium (Colace) 100 mg PO BID [facility] Stop: 09/28/19 08:59 Last Admin: 08/05/19 08:50 Dose: 100 mg Fluphenazine Decanoate (Prolixin Deconate) 25 mg IM [id number] [facility]; Protocol Stop: 10/05/19 16:59 Fluphenazine HCl (Prolixin) 5 mg IM DAILY [facility]; Protocol Stop: 08/06/19 12:00 Last Admin: 08/04/19 09:30 Dose: 5 mg Lactulose (Cephulac) 30 gm PO TID [facility]ENNY Stop: 09/28/19 08:59 Last Admin: 08/05/19 08:49 Dose: 30 gm Levetiracetam (Keppra) 500 mg PO DAILY [facility] Stop: 09/28/19 08:59 Last Admin: 08/05/19 08:50 Dose: 500 mg Lorazepam (Ativan) 0.5 mg PO Q4HR PRN; Protocol PRN Reason: Anxiety Stop: 08/29/19 04:08 Last Admin: 07/30/19 17:39 Dose: 0.5 mg Magnesium Hydroxide (Milk Of Magnesia) 30 ml PO HS PRN PRN Reason: Constipation Nitroglycerin (Nitrostat) 0.4 mg SL Q5MIN PRN PRN Reason: Chest Pain Stop: 09/28/19 04:56 Olanzapine (Zyprexa) 10 mg PO HS [facility]; Protocol Stop: 09/28/19 20:59 Last Admin: 08/04/19 20:31 Dose: 10 mg Promethazine HCl/Dextromethorphan (Phenergan Dm 6.25/15mg-5 Ml) 10 ml PO TID [facility] Stop: 08/05/19 14:01 Last Admin: 08/05/19 08:49 Dose: 10 ml Rivaroxaban (Xarelto) 10 mg PO QPM [facility] Stop: 09/28/19 16:59 Last Admin: 08/04/19 16:16 Dose: 10 mg Senna (Senna) 8.6 mg PO HS [facility] Stop: 09/28/19 20:59 Last Admin: 08/04/19 20:32 Dose: 8.6 mg Trazodone HCl (Desyrel) 50 mg PO HS [facility]; Protocol Stop: 09/28/19 20:59 Last Admin: 08/04/19 20:31 Dose: 50 mg Zinc Sulfate (Zinc Sulfate) 220 mg PO DAILY [facility] Stop: 09/28/19 08:59 Last Admin: 08/05/19 08:50 Dose: 220 mg Zolpidem Tartrate (Ambien) 5 mg PO HS PRN PRN Reason: Insomnia Stop: 09/28/19 04:08 Last Admin: 08/03/19 21:22 Dose: 5 mg General: alert, demented HEENT: NC/AT, PERRLA Neck: Supple Lungs: CTAB Cardiovascular: RRR, Normal S1, Normal S2 Abdomen: soft, non-tender, non-distended Extremities: excoriation Neurological: alert Internal Medicine Assmt/Plan - Assessment Assessment: Agitation, history of seizures and psychosis. - Plan Plan: PLAN: We will continue the patient's home medications. Fall precautions will be initiated. We will continue to follow this patient. Nutritional Asmnt/Malnutr-PDOC - Dietary Evaluation Malnutrition Findings (Please click <Entered> for more info): Nutritional Asmnt/Malnutrition Start: 08/03/19 11: 51 Text: Status: Complete Freq: Protocol: Document 08/03/19 11:51 BOBBY (Rec: 08/03/19 11:54 BOBBY [email or web address]) Nutritional Asmnt/Malnutrition Patient General Information Nutritional Screening Moderate Risk Diagnosis Psychosis Pertinent Medical Hx/Surgical Hx Paraplegia, Seizures, Constipation, Psychosis Subjective Information Pt is a 59-year-old female admitted on 07/30 d/t psychosis . Pt is eating an estimated 64 % of meals x3 days Per Meal/ Nutrition Activity Record. Dietary is currently providing an estimated 2150 kcals and 90 gm Pro, per Pt PO intake this is providing an estimated 1380 kcals and 58gm Pro to meet 89% kcal and 97% Pro needs. Add Jeremias BID to support wound healing. Will monitor pt tolerance and wound healing progress. Anthropometrics HT: 54 WT: 138 LB (62.73 kg) BMI: 23.78 (Normal) GI/ Skin Integrity GI: WNL, Soft, Flat, Non- tender BM: 08/02 x2 I/O: 1090/Not Noted Skin: Reddened, Lower LT Buttocks Maceration, Pale, Ulceration Ernie: 13 Diet Order: Regular Estimated Energy Needs: ( Geriatric, CBW) 6721-5531 kcals (25-30 kcals/ kg) 60-75g Pro (1.0-1.2 g/kg) 6573-9169 ml (25-30 ml/kg) Current Diet Order/ Nutrition Support Regular Pertinent Medications Maalox (PRN), Vitamin C, Colace, Cephulac, MOM (PRN) Pertinent Labs 07/29: Na 132, Glucose 136, Albumin 3.2, HDL Chol 40 Nutritional Hx/Data Height 5 ft 4 in Height (Calculated Centimeters) 162.6 Current Weight (lbs) 138 lb Weight (Calculated Kilograms) 62.6 Weight (Calculated Grams) 95805.7 [place] Body Weight 115 LB (52.27 kg) % [place] Body Weight 120 Body Mass Index (BMI) 23.6 Weight Status Approriate GI Symptoms Last BM 08/02 x2 Skin Integrity/Comment: Skin: Reddened, Lower LT Buttocks Maceration, Pale, Ulceration Ernie: 13 Add Jeremias BID to support wound healing. Will monitor pt tolerance and wound healing progress. Nutritional Problem 1. Problem Problem Increased mineral/vitamin needs Etiology r/t wound healing Signs/Symptoms: aeb Reddened, Lower LT Buttocks Maceration, Pale, Ulceration and Ernie Score 13 . Intervention/Recommendation Comments 1. Continue Regular diet as tolerated. 2. Add Jeremias BID to support wound healing (completed). Expected Outcomes/Goals Expected Outcomes/Goals 1.PO intake to continue to meet >75% of estimated nutritional needs. 2.Monitor PO intake, wt, nutrition related labs, and skin integrity to trend WNL. 3.F/U as moderate risk in 3-5 days, 08/06-08/08.
--- NOTE | 2019-08-06 01:33 | Progress Notes ---
DATE: 08/05/2019 PSYCHIATRIC PROGRESS NOTE SUBJECTIVE: Staff was spoken to. The patient is interviewed. Mood is noted to be irritable. Affect is constricted. Coping skills are noted to be very poor. The patient is more preoccupied with her pain medications. The patient has paranoid delusions. The patient is isolative and withdrawn at this time. ASSESSMENT: The patient is still psychotic. PLAN: To continue the patient with the Prolixin and followup. JOB# [id number]
[2019-08-06] MEDS: Hydrocodone/APAP 10 mg/325 mg Tab PO PRN ×3 (04:39→20:35)
[2019-08-06] MEDS: Lactulose 10 Gm/15 mL 30mL UDC PO SCH ×3 (08:17→20:33)
[2019-08-06] MEDS: Multivitamin w/ Minerals Tab PO SCH (08:17)
--- NOTE | 2019-08-06 10:32 | Progress Notes ---
DATE: 08/05/2019 PSYCHOLOGY PROGRESS NOTE SUBJECTIVE: The patient is seen and is interviewed. Case is discussed with staff. The patient presents as guarded and suspicious with an irritable mood. The patient appears to be preoccupied with her pain medications and is medication seeking. The patient's paranoia persists. Staff reports the patient continues to isolate and be withdrawn. OBJECTIVE: Mood is irritable. Affect is constricted. Thought process includes paranoid delusions. The patient did not answer questions about auditory or visual hallucinations. The patient's behavior shows singular preoccupation with pain medication and is medication seeking. ASSESSMENT: The patient's psychosis persists. PLAN: We will continue to provide reality orientation and testing. We will provide reality integration. We will provide coping strategies for chronic severe mental illness. We will encourage the patient by motivational enhancement to become compliant and stay compliant with her care and treatment. We will continue to add coping strategies for chronic severe mental illness. We will encourage the patient to verbalize her concerns versus acting out by care refusal and verbal aggression. We will follow up in 2-3 days if the patient remains on the unit and we will reevaluate the patient's capacity to benefit from psychology services. [facility]# [id number] JESSICA
--- NOTE | 2019-08-06 18:30 | Internal Medicine Prog Note ---
Internal Medicine Subjective - Subjective Service Date: 08/06/19 Patient is:: awake, verbal, in wheelchair, confused Patient Complaints of:: other Per staff patient has:: no adverse event, tolerating meds Internal Medicine Objective - Physical Exam Vitals and I&O: Vital Signs Temp 97.9 F 08/06/19 14:00 Pulse 94 08/06/19 14:00 Resp 18 08/06/19 14:00 BP 121/73 08/06/19 14:00 Pulse Ox 96 08/06/19 14:00 Intake & Output 08/05/19 08/06/19 08/06/19 18:59 06:59 18:59 Intake Total 622 833 3602 Balance 628 114 3932 Intake: Oral 731 892 5275 Other: # Voids 3 2 # Bowel Movements 1 2 1 Active Medications: Current Medications Acetaminophen (Tylenol) 650 mg PO Q4H PRN PRN Reason: Pain (Mild 1-3) Stop: 09/28/19 04:08 Last Admin: 08/05/19 15:47 Dose: 650 mg Acetaminophen (Tylenol) 650 mg PO Q4H PRN PRN Reason: TEMP.>100.4 Stop: 09/28/19 04:14 Acetaminophen/Hydrocodone Bitart ([place] 5mg/325mg) 1 tab PO Q6H PRN PRN Reason: Pain (Moderate 4-6) Stop: 10/02/19 06:57 Last Admin: 08/04/19 13:08 Dose: 1 tab Acetaminophen/Hydrocodone Bitart ([place] 10 Mg/325 Mg) 1 tab PO Q6H PRN PRN Reason: Pain (Severe 7-10) Stop: 10/02/19 06:58 Last Admin: 08/06/19 12:52 Dose: 1 tab Al Hydrox/Mg Hydrox/Simethicone (Maalox) 30 ml PO Q4HR PRN PRN Reason: GI DISTRESS Stop: 09/28/19 04:08 Ascorbic Acid (Vitamin C) 500 mg PO DAILY [facility] Stop: 09/28/19 08:59 Last Admin: 08/06/19 08:18 Dose: 500 mg Docusate Sodium (Colace) 100 mg PO BID [facility] Stop: 09/28/19 08:59 Last Admin: 08/06/19 16:17 Dose: 100 mg Fluphenazine Decanoate (Prolixin Deconate) 25 mg IM [id number] [facility]; Protocol Stop: 10/05/19 16:59 Last Admin: 08/06/19 16:18 Dose: Not Given Lactulose (Cephulac) 30 gm PO TID JENNY Stop: 09/28/19 08:59 Last Admin: 08/06/19 13:15 Dose: 30 gm Levetiracetam (Keppra) 500 mg PO DAILY [facility] Stop: 09/28/19 08:59 Last Admin: 08/06/19 08:17 Dose: 500 mg Lorazepam (Ativan) 0.5 mg PO Q4HR PRN; Protocol PRN Reason: Anxiety Stop: 08/29/19 04:08 Last Admin: 07/30/19 17:39 Dose: 0.5 mg Magnesium Hydroxide (Milk Of Magnesia) 30 ml PO HS PRN PRN Reason: Constipation Nitroglycerin (Nitrostat) 0.4 mg SL Q5MIN PRN PRN Reason: Chest Pain Stop: 09/28/19 04:56 Olanzapine (Zyprexa) 10 mg PO HS [facility]; Protocol Stop: 09/28/19 20:59 Last Admin: 08/05/19 20:45 Dose: 10 mg Rivaroxaban (Xarelto) 10 mg PO QPM [facility] Stop: 09/28/19 16:59 Last Admin: 08/06/19 16:17 Dose: 10 mg Senna (Senna) 8.6 mg PO HS [facility] Stop: 09/28/19 20:59 Last Admin: 08/05/19 20:45 Dose: 8.6 mg Trazodone HCl (Desyrel) 50 mg PO HS [facility]; Protocol Stop: 09/28/19 20:59 Last Admin: 08/05/19 20:45 Dose: 50 mg Zinc Sulfate (Zinc Sulfate) 220 mg PO DAILY [facility] Stop: 09/28/19 08:59 Last Admin: 08/06/19 08:17 Dose: 220 mg Zolpidem Tartrate (Ambien) 5 mg PO HS PRN PRN Reason: Insomnia Stop: 09/28/19 04:08 Last Admin: 08/03/19 21:22 Dose: 5 mg General: alert, demented HEENT: NC/AT, PERRLA Neck: Supple Lungs: CTAB Cardiovascular: RRR, Normal S1, Normal S2 Abdomen: soft, non-tender, non-distended Extremities: excoriation Neurological: alert Internal Medicine Assmt/Plan - Assessment Assessment: Agitation, history of seizures and psychosis. - Plan Plan: PLAN: We will continue the patient's home medications. Fall precautions will be initiated. We will continue to follow this patient. Nutritional Asmnt/Malnutr-PDOC - Dietary Evaluation Malnutrition Findings (Please click <Entered> for more info): Nutritional Asmnt/Malnutrition Start: 08/03/19 11: 51 Text: Status: Complete Freq: Protocol: Document 08/03/19 11:51 BOBBY (Rec: 08/03/19 11:54 BOBBY [email or web address]) Nutritional Asmnt/Malnutrition Patient General Information Nutritional Screening Moderate Risk Diagnosis Psychosis Pertinent Medical Hx/Surgical Hx Paraplegia, Seizures, Constipation, Psychosis Subjective Information Pt is a 59-year-old female admitted on 07/30 d/t psychosis . Pt is eating an estimated 64 % of meals x3 days Per Meal/ Nutrition Activity Record. Dietary is currently providing an estimated 2150 kcals and 90 gm Pro, per Pt PO intake this is providing an estimated 1380 kcals and 58gm Pro to meet 89% kcal and 97% Pro needs. Add Jeremias BID to support wound healing. Will monitor pt tolerance and wound healing progress. Anthropometrics HT: 54 WT: 138 LB (62.73 kg) BMI: 23.78 (Normal) GI/ Skin Integrity GI: WNL, Soft, Flat, Non- tender BM: 08/02 x2 I/O: 1090/Not Noted Skin: Reddened, Lower LT Buttocks Maceration, Pale, Ulceration Ernie: 13 Diet Order: Regular Estimated Energy Needs: ( Geriatric, CBW) 6441-1540 kcals (25-30 kcals/ kg) 60-75g Pro (1.0-1.2 g/kg) 5131-7407 ml (25-30 ml/kg) Current Diet Order/ Nutrition Support Regular Pertinent Medications Maalox (PRN), Vitamin C, Colace, Cephulac, MOM (PRN) Pertinent Labs 07/29: Na 132, Glucose 136, Albumin 3.2, HDL Chol 40 Nutritional Hx/Data Height 5 ft 4 in Height (Calculated Centimeters) 162.6 Current Weight (lbs) 138 lb Weight (Calculated Kilograms) 62.6 Weight (Calculated Grams) 50014.7 [place] Body Weight 115 LB (52.27 kg) % [place] Body Weight 120 Body Mass Index (BMI) 23.6 Weight Status Approriate GI Symptoms Last BM 08/02 x2 Skin Integrity/Comment: Skin: Reddened, Lower LT Buttocks Maceration, Pale, Ulceration Ernie: 13 Add Jeremias BID to support wound healing. Will monitor pt tolerance and wound healing progress. Nutritional Problem 1. Problem Problem Increased mineral/vitamin needs Etiology r/t wound healing Signs/Symptoms: aeb Reddened, Lower LT Buttocks Maceration, Pale, Ulceration and Ernie Score 13 . Intervention/Recommendation Comments 1. Continue Regular diet as tolerated. 2. Add Jeremias BID to support wound healing (completed). Expected Outcomes/Goals Expected Outcomes/Goals 1.PO intake to continue to meet >75% of estimated nutritional needs. 2.Monitor PO intake, wt, nutrition related labs, and skin integrity to trend WNL. 3.F/U as moderate risk in 3-5 days, 08/06-08/08.
--- NOTE | 2019-08-06 21:23 | Progress Notes ---
DATE: 08/06/2019 PSYCHIATRIC PROGRESS NOTE SUBJECTIVE: Staff was spoken to. The patient is interviewed. Mood is noted to be irritable. Affect is constricted. The patient is stating that she is in acute pain and not getting her morphine. The patient is reported to have been more med-seeking at this time. Paranoid delusions are noted, but insight and judgment are noted to be still impaired. Impulse control seems to be limited. Coping skills are noted to be limited. ASSESSMENT: The patient is still psychotic and impulsive. PLAN: To continue the patient with the supportive therapy and followup. JOB# [id number]
[2019-08-07] MEDS: Hydrocodone/APAP 5mg/325mg Tab PO PRN (05:21)
[2019-08-07] MEDS: Lactulose 10 Gm/15 mL 30mL UDC PO SCH ×4 (08:16→20:44)
[2019-08-07] MEDS: Multivitamin w/ Minerals Tab PO SCH (08:17)
--- NOTE | 2019-08-07 11:33 | Internal Medicine Prog Note ---
Internal Medicine Subjective - Subjective Service Date: 08/07/19 Patient seen and examined:: with staff Patient is:: awake, verbal, in wheelchair, confused Patient Complaints of:: other Per staff patient has:: no adverse event, tolerating meds Internal Medicine Objective - Physical Exam Vitals and I&O: Vital Signs Temp 98.0 F 08/07/19 06:02 Pulse 98 08/07/19 06:02 Resp 20 08/07/19 06:02 BP 139/66 08/07/19 06:02 Pulse Ox 100 08/07/19 06:02 Intake & Output 08/06/19 08/07/19 08/07/19 18:59 06:59 18:59 Intake Total 1200 240 Output Total 1 Balance 1200 239 Intake: Oral 1200 240 Output: Urine/Stool Mix 1 Other: # Voids 1 # Bowel Movements 1 Active Medications: Current Medications Acetaminophen (Tylenol) 650 mg PO Q4H PRN PRN Reason: Pain (Mild 1-3) Stop: 09/28/19 04:08 Last Admin: 08/05/19 15:47 Dose: 650 mg Acetaminophen (Tylenol) 650 mg PO Q4H PRN PRN Reason: TEMP.>100.4 Stop: 09/28/19 04:14 Acetaminophen/Hydrocodone Bitart ([place] 5mg/325mg) 1 tab PO Q6H PRN PRN Reason: Pain (Moderate 4-6) Stop: 10/02/19 06:57 Last Admin: 08/07/19 05:21 Dose: 1 tab Acetaminophen/Hydrocodone Bitart ([place] 10 Mg/325 Mg) 1 tab PO Q6H PRN PRN Reason: Pain (Severe 7-10) Stop: 10/02/19 06:58 Last Admin: 08/06/19 20:35 Dose: 1 tab Al Hydrox/Mg Hydrox/Simethicone (Maalox) 30 ml PO Q4HR PRN PRN Reason: GI DISTRESS Stop: 09/28/19 04:08 Ascorbic Acid (Vitamin C) 500 mg PO DAILY [facility] Stop: 09/28/19 08:59 Last Admin: 08/07/19 08:17 Dose: 500 mg Docusate Sodium (Colace) 100 mg PO BID [facility] Stop: 09/28/19 08:59 Last Admin: 08/07/19 08:17 Dose: 100 mg Fluphenazine Decanoate (Prolixin Deconate) 25 mg IM [id number] [facility]; Protocol Stop: 10/05/19 16:59 Last Admin: 08/06/19 16:18 Dose: Not Given Lactulose (Cephulac) 30 gm PO TID [facility] Stop: 09/28/19 08:59 Last Admin: 08/07/19 08:34 Dose: Not Given Levetiracetam (Keppra) 500 mg PO DAILY [facility] Stop: 09/28/19 08:59 Last Admin: 08/07/19 08:17 Dose: 500 mg Lorazepam (Ativan) 0.5 mg PO Q4HR PRN; Protocol PRN Reason: Anxiety Stop: 08/29/19 04:08 Last Admin: 07/30/19 17:39 Dose: 0.5 mg Magnesium Hydroxide (Milk Of Magnesia) 30 ml PO HS PRN PRN Reason: Constipation Nitroglycerin (Nitrostat) 0.4 mg SL Q5MIN PRN PRN Reason: Chest Pain Stop: 09/28/19 04:56 Olanzapine (Zyprexa) 10 mg PO HS [facility]; Protocol Stop: 09/28/19 20:59 Last Admin: 08/06/19 20:34 Dose: 10 mg Rivaroxaban (Xarelto) 10 mg PO QPM [facility] Stop: 09/28/19 16:59 Last Admin: 08/06/19 16:17 Dose: 10 mg Senna (Senna) 8.6 mg PO HS [facility] Stop: 09/28/19 20:59 Last Admin: 08/06/19 20:34 Dose: 8.6 mg Trazodone HCl (Desyrel) 50 mg PO HS [facility]; Protocol Stop: 09/28/19 20:59 Last Admin: 08/06/19 20:35 Dose: 50 mg Zinc Sulfate (Zinc Sulfate) 220 mg PO DAILY [facility] Stop: 09/28/19 08:59 Last Admin: 08/07/19 08:17 Dose: 220 mg Zolpidem Tartrate (Ambien) 5 mg PO HS PRN PRN Reason: Insomnia Stop: 09/28/19 04:08 Last Admin: 08/03/19 21:22 Dose: 5 mg Physical Exam: Patient needs close monitoring, very impulsive and delusional. General: alert, demented HEENT: NC/AT, PERRLA Neck: Supple Lungs: CTAB Cardiovascular: RRR, Normal S1, Normal S2 Abdomen: soft, non-tender, non-distended Extremities: excoriation Neurological: alert Internal Medicine Assmt/Plan - Assessment Assessment: Paraplegia. Seizures. Psychosis. Constipation. Schizophrenia, chronic, paranoid type. Impulse control disorder. 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 - Plan Plan: Continuation of care. Psych management as per Psych. Monitor Labs and vitals. Continue present meds as directed. Monitor Diet/Nutritional support. Pain Management. Safety precaution. Supportive care. Fall precaution, frequent nursing rounds, and as needed restraints to prevent fall. Continue collaborating with consulting specialists, case management and nursing team. Will Monitor patient and continue current treatment plan as ordered. Nutritional Asmnt/Malnutr-PDOC - Dietary Evaluation Malnutrition Findings (Please click <Entered> for more info): Nutritional Asmnt/Malnutrition Start: 08/03/19 11: 51 Text: Status: Complete Freq: Protocol: Document 08/03/19 11:51 BOBBY (Rec: 08/03/19 11:54 BOBBY [id number]) Nutritional Asmnt/Malnutrition Patient General Information Nutritional Screening Moderate Risk Diagnosis Psychosis Pertinent Medical Hx/Surgical Hx Paraplegia, Seizures, Constipation, Psychosis Subjective Information Pt is a 59-year-old female admitted on 07/30 d/t psychosis . Pt is eating an estimated 64 % of meals x3 days Per Meal/ Nutrition Activity Record. Dietary is currently providing an estimated 2150 kcals and 90 gm Pro, per Pt PO intake this is providing an estimated 1380 kcals and 58gm Pro to meet 89% kcal and 97% Pro needs. Add Jeremias BID to support wound healing. Will monitor pt tolerance and wound healing progress. Anthropometrics HT: 54 WT: 138 LB (62.73 kg) BMI: 23.78 (Normal) GI/ Skin Integrity GI: WNL, Soft, Flat, Non- tender BM: 08/02 x2 I/O: 1090/Not Noted Skin: Reddened, Lower LT Buttocks Maceration, Pale, Ulceration Ernie: 13 Diet Order: Regular Estimated Energy Needs: ( Geriatric, CBW) 2502-4888 kcals (25-30 kcals/ kg) 60-75g Pro (1.0-1.2 g/kg) 1875-6046 ml (25-30 ml/kg) Current Diet Order/ Nutrition Support Regular Pertinent Medications Maalox (PRN), Vitamin C, Colace, Cephulac, MOM (PRN) Pertinent Labs 07/29: Na 132, Glucose 136, Albumin 3.2, HDL Chol 40 Nutritional Hx/Data Height 1.63 m Height (Calculated Centimeters) 162.6 Current Weight (lbs) 62.596 kg Weight (Calculated Kilograms) 62.6 Weight (Calculated Grams) 21403.7 [place] Body Weight 115 LB (52.27 kg) % [place] Body Weight 120 Body Mass Index (BMI) 23.6 Weight Status Approriate GI Symptoms Last BM 08/02 x2 Skin Integrity/Comment: Skin: Reddened, Lower LT Buttocks Maceration, Pale, Ulceration Ernie: 13 Add Jeremias BID to support wound healing. Will monitor pt tolerance and wound healing progress. Nutritional Problem 1. Problem Problem Increased mineral/vitamin needs Etiology r/t wound healing Signs/Symptoms: aeb Reddened, Lower LT Buttocks Maceration, Pale, Ulceration and Ernie Score 13 . Intervention/Recommendation Comments 1. Continue Regular diet as tolerated. 2. Add Jeremias BID to support wound healing (completed). Expected Outcomes/Goals Expected Outcomes/Goals 1.PO intake to continue to meet >75% of estimated nutritional needs. 2.Monitor PO intake, wt, nutrition related labs, and skin integrity to trend WNL. 3.F/U as moderate risk in 3-5 days, 08/06-08/08.
[2019-08-07] MEDS: Hydrocodone/APAP 10 mg/325 mg Tab PO PRN ×2 (16:35→21:48)
--- NOTE | 2019-08-07 21:36 | Progress Notes ---
DATE: 08/07/2019 PSYCHIATRIC PROGRESS NOTE SUBJECTIVE: Staff was spoken to. The patient is interviewed. Mood is irritable. Affect is constricted. The patient's insight and judgment are noted to be still impaired. Impulse control is noted to be limited. Coping skills are noted to be limited. The patient has been having difficult time to cope with the stress. The patient is more concerned with her pain medications and wants more and more morphine. ASSESSMENT: The patient is still psychotic. PLAN: To continue the patient with Zyprexa. I encouraged the patient to verbalize the concerns rather than to act out. JOB# [id number]
[2019-08-08] MEDS: Hydrocodone/APAP 5mg/325mg Tab PO PRN (05:48)
--- NOTE | 2019-08-08 08:44 | Progress Notes ---
DATE: 08/08/2019 SUBJECTIVE: The patient was seen in the dining area. The patient is still paranoid and suspicious, appears to be guarded, easily gets frustrated with poor impulse control. Otherwise, the patient is in no acute distress. OBJECTIVE: VITAL SIGNS: Temperature ____, heart rate of 96, blood pressure 112/80, respirations 17, 98% on room air. HEENT: Head is atraumatic and normocephalic. Eyes: Bilateral conjunctivae are clear. Bilateral pupils equal, round, reactive. NECK: Supple. No JVD. CARDIOVASCULAR: S1 and S2, without murmur. PULMONARY: Clear to auscultation. GASTROINTESTINAL: Soft and nontender without guarding. Positive bowel sounds. MUSCULOSKELETAL: No clubbing. No cyanosis. ASSESSMENT: 1. Schizophrenia. 2. Seizure disorder. 3. Paraplegia. PLAN: We will continue to keep the patient inpatient to Psychiatric Unit. We will follow up with a psychiatrist to monitor the patient's condition and behavior. Treatment plans were discussed with the patient's nurse. Treatment plans were discussed with Dr. Aquino. JOB# [id number]
[2019-08-08] MEDS: Multivitamin w/ Minerals Tab PO SCH (09:14)
[2019-08-08] MEDS: Lactulose 10 Gm/15 mL 30mL UDC PO SCH ×3 (09:15→20:41)
--- NOTE | 2019-08-08 14:17 | Progress Notes ---
DATE: 08/08/2019 PSYCHIATRIC PROGRESS NOTE SUBJECTIVE: Staff was spoken to. The patient is interviewed. Mood is noted to be irritable. Affect is constricted. The patient's insight and judgment are noted to be still impaired. Impulse control is noted to be limited. Coping skills are noted to be limited. The patient has been having difficult time to cope with the stress. The patient is isolative and withdrawn. The patient continues to be paranoid. The patient is getting the Prolixin Decanoate once every 2 weeks and the patient is also on Zyprexa 10 mg at bedtime. ASSESSMENT: The patient is still psychotic and impulsive. PLAN: To continue the patient with the supportive therapy and followup. [facility]# [id number]
--- NOTE | 2019-08-08 18:16 | Progress Notes ---
DATE: 08/07/2019 PSYCHOLOGY PROGRESS NOTE SUBJECTIVE: The patient is seen and is interviewed. Case is discussed with staff. The patient presents as guarded and easily irritated. The staff reports the patient is pain medication seeking and is requesting more morphine. The patient asked this senior writer the similar request. This is deferred to the medical doctor. We provided the offer for alternative pain control measures that do not involve medications. The patient declined. OBJECTIVE: Mood is irritable. Affect is constricted. Thought process shows to be confused with perseveration on pain medication and somatic concerns. The patient denied any hallucinations or delusions; however, there is delusional content present. The patient's behavior is medication seeking. ASSESSMENT AND PLAN: The patient's psychosis persists. PLAN: The attending psychiatrist is continuing the Zyprexa. We provided reality testing, which is poor. We provided reality differentiation and integration. The patient had difficulty responding to this type of intervention. The patient is mostly reluctant to participate in the psychotherapeutic treatment and interventions being provided. We provided the offer for pain control measures that are adjunctive to medication and to learn and apply this type of skill and strategy. The patient at this time is having difficulty understanding and responding to this approach due to her active psychosis and paranoid ideation. We will continue to provide supportive psychotherapy and coping strategies for chronic severe mental illness. We will follow up in 2-3 days to continue the present treatment if the patient remains on the unit and is able to demonstrate the capacity to benefit from psychology services. JOB# [id number] JESSICA
[2019-08-08] MEDS: Hydrocodone/APAP 10 mg/325 mg Tab PO PRN (20:43)
[2019-08-09] MEDS: Hydrocodone/APAP 5mg/325mg Tab PO PRN (06:06)
[2019-08-09] MEDS: Multivitamin w/ Minerals Tab PO SCH (09:08)
[2019-08-09] MEDS: Lactulose 10 Gm/15 mL 30mL UDC PO SCH ×3 (09:09→21:06)
[2019-08-09] MEDS: Hydrocodone/APAP 10 mg/325 mg Tab PO PRN ×2 (10:20→21:07)
--- NOTE | 2019-08-09 13:42 | Internal Medicine Prog Note ---
Internal Medicine Subjective - Subjective Service Date: 08/09/19 Patient seen and examined:: with staff Patient is:: awake, verbal, in wheelchair, confused Patient Complaints of:: other Per staff patient has:: no adverse event, tolerating meds Internal Medicine Objective - Physical Exam Vitals and I&O: Vital Signs Temp 99 F 08/09/19 06:42 Pulse 91 08/09/19 06:42 Resp 18 08/09/19 06:42 BP 111/78 08/09/19 06:42 Pulse Ox 96 08/09/19 06:42 Intake & Output 08/08/19 08/09/19 08/09/19 18:59 06:59 18:59 Intake Total 960 240 Balance 960 240 Intake: Oral 960 240 Other: # Voids 4 3 # Bowel Movements 1 Stool Characteristics Soft Active Medications: Current Medications Acetaminophen (Tylenol) 650 mg PO Q4H PRN PRN Reason: Pain (Mild 1-3) Stop: 09/28/19 04:08 Last Admin: 08/08/19 09:15 Dose: 650 mg Acetaminophen (Tylenol) 650 mg PO Q4H PRN PRN Reason: TEMP.>100.4 Stop: 09/28/19 04:14 Acetaminophen/Hydrocodone Bitart ([place] 5mg/325mg) 1 tab PO Q6H PRN PRN Reason: Pain (Moderate 4-6) Stop: 10/02/19 06:57 Last Admin: 08/09/19 06:06 Dose: 1 tab Acetaminophen/Hydrocodone Bitart ([place] 10 Mg/325 Mg) 1 tab PO Q6H PRN PRN Reason: Pain (Severe 7-10) Stop: 10/02/19 06:58 Last Admin: 08/09/19 10:20 Dose: 1 tab Al Hydrox/Mg Hydrox/Simethicone (Maalox) 30 ml PO Q4HR PRN PRN Reason: GI DISTRESS Stop: 09/28/19 04:08 Ascorbic Acid (Vitamin C) 500 mg PO DAILY [facility] Stop: 09/28/19 08:59 Last Admin: 08/09/19 09:08 Dose: 500 mg Docusate Sodium (Colace) 100 mg PO BID [facility] Stop: 09/28/19 08:59 Last Admin: 08/09/19 09:08 Dose: 100 mg Fluphenazine Decanoate (Prolixin Deconate) 25 mg IM [id number] [facility]; Protocol Stop: 10/05/19 16:59 Last Admin: 08/06/19 16:18 Dose: Not Given Lactulose (Cephulac) 30 gm PO TID [facility] Stop: 09/28/19 08:59 Last Admin: 08/09/19 09:09 Dose: Not Given Levetiracetam (Keppra) 500 mg PO DAILY [facility] Stop: 09/28/19 08:59 Last Admin: 08/09/19 09:08 Dose: 500 mg Lorazepam (Ativan) 0.5 mg PO Q4HR PRN; Protocol PRN Reason: Anxiety Stop: 08/29/19 04:08 Last Admin: 08/09/19 09:08 Dose: 0.5 mg Magnesium Hydroxide (Milk Of Magnesia) 30 ml PO HS PRN PRN Reason: Constipation Nitroglycerin (Nitrostat) 0.4 mg SL Q5MIN PRN PRN Reason: Chest Pain Stop: 09/28/19 04:56 Olanzapine (Zyprexa) 10 mg PO HS [facility]; Protocol Stop: 09/28/19 20:59 Last Admin: 08/08/19 20:42 Dose: 10 mg Rivaroxaban (Xarelto) 10 mg PO QPM [facility] Stop: 09/28/19 16:59 Last Admin: 08/08/19 17:09 Dose: 10 mg Senna (Senna) 8.6 mg PO HS [facility] Stop: 09/28/19 20:59 Last Admin: 08/08/19 20:42 Dose: 8.6 mg Trazodone HCl (Desyrel) 50 mg PO HS [facility]; Protocol Stop: 09/28/19 20:59 Last Admin: 08/08/19 20:43 Dose: 50 mg Zinc Sulfate (Zinc Sulfate) 220 mg PO DAILY [facility] Stop: 09/28/19 08:59 Last Admin: 08/09/19 09:08 Dose: 220 mg Zolpidem Tartrate (Ambien) 5 mg PO HS PRN PRN Reason: Insomnia Stop: 09/28/19 04:08 Last Admin: 08/03/19 21:22 Dose: 5 mg Physical Exam: Patient needs close monitoring, easily frustrated and agitated. General: alert, demented HEENT: NC/AT, PERRLA Neck: Supple Lungs: CTAB Cardiovascular: RRR, Normal S1, Normal S2 Abdomen: soft, non-tender, non-distended Extremities: excoriation Neurological: alert Internal Medicine Assmt/Plan - Assessment Assessment: Paraplegia. Seizures. Psychosis. Constipation. Schizophrenia, chronic, paranoid type. Impulse control disorder. 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 - Plan Plan: Continuation of care. Psych management as per Psych. Monitor Labs and vitals. Continue present meds as directed. Monitor Diet/Nutritional support. Pain Management. Safety precaution. Supportive care. Fall precaution, frequent nursing rounds, and as needed restraints to prevent fall. Continue collaborating with consulting specialists, case management and nursing team. Will Monitor patient and continue current treatment plan as ordered. Nutritional Asmnt/Malnutr-PDOC - Dietary Evaluation Malnutrition Findings (Please click <Entered> for more info): Nutritional Asmnt/Malnutrition Start: 08/03/19 11: 51 Text: Status: Complete Freq: Protocol: Document 08/03/19 11:51 BOBBY (Rec: 08/03/19 11:54 [id number]) Nutritional Asmnt/Malnutrition Patient General Information Nutritional Screening Moderate Risk Diagnosis Psychosis Pertinent Medical Hx/Surgical Hx Paraplegia, Seizures, Constipation, Psychosis Subjective Information Pt is a 59-year-old female admitted on 07/30 d/t psychosis . Pt is eating an estimated 64 % of meals x3 days Per Meal/ Nutrition Activity Record. Dietary is currently providing an estimated 2150 kcals and 90 gm Pro, per Pt PO intake this is providing an estimated 1380 kcals and 58gm Pro to meet 89% kcal and 97% Pro needs. Add Jeremias BID to support wound healing. Will monitor pt tolerance and wound healing progress. Anthropometrics HT: 54 WT: 138 LB (62.73 kg) BMI: 23.78 (Normal) GI/ Skin Integrity GI: WNL, Soft, Flat, Non- tender BM: 08/02 x2 I/O: 1090/Not Noted Skin: Reddened, Lower LT Buttocks Maceration, Pale, Ulceration Ernie: 13 Diet Order: Regular Estimated Energy Needs: ( Geriatric, CBW) 4332-8125 kcals (25-30 kcals/ kg) 60-75g Pro (1.0-1.2 g/kg) 2612-1201 ml (25-30 ml/kg) Current Diet Order/ Nutrition Support Regular Pertinent Medications Maalox (PRN), Vitamin C, Colace, Cephulac, MOM (PRN) Pertinent Labs 07/29: Na 132, Glucose 136, Albumin 3.2, HDL Chol 40 Nutritional Hx/Data Height 1.63 m Height (Calculated Centimeters) 162.6 Current Weight (lbs) 62.596 kg Weight (Calculated Kilograms) 62.6 Weight (Calculated Grams) 81980.7 [place] Body Weight 115 LB (52.27 kg) % [place] Body Weight 120 Body Mass Index (BMI) 23.6 Weight Status Approriate GI Symptoms Last BM 08/02 x2 Skin Integrity/Comment: Skin: Reddened, Lower LT Buttocks Maceration, Pale, Ulceration Ernie: 13 Add Jeremias BID to support wound healing. Will monitor pt tolerance and wound healing progress. Nutritional Problem 1. Problem Problem Increased mineral/vitamin needs Etiology r/t wound healing Signs/Symptoms: aeb Reddened, Lower LT Buttocks Maceration, Pale, Ulceration and Ernie Score 13 . Intervention/Recommendation Comments 1. Continue Regular diet as tolerated. 2. Add Jeremias BID to support wound healing (completed). Expected Outcomes/Goals Expected Outcomes/Goals 1.PO intake to continue to meet >75% of estimated nutritional needs. 2.Monitor PO intake, wt, nutrition related labs, and skin integrity to trend WNL. 3.F/U as moderate risk in 3-5 days, 08/06-08/08.
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
[2019-08-10] MEDS: Hydrocodone/APAP 10 mg/325 mg Tab PO PRN ×3 (06:36→21:11)
[2019-08-10] MEDS: Lactulose 10 Gm/15 mL 30mL UDC PO SCH ×3 (08:45→20:35)
[2019-08-10] MEDS: Multivitamin w/ Minerals Tab PO SCH (08:50)
--- NOTE | 2019-08-10 10:56 | Internal Medicine Prog Note ---
Internal Medicine Subjective - Subjective Service Date: 08/10/19 Patient seen and examined:: with staff Patient is:: awake, verbal, in wheelchair, confused Patient Complaints of:: other Per staff patient has:: no adverse event, tolerating meds Internal Medicine Objective - Physical Exam Vitals and I&O: Vital Signs Temp 98.8 F 08/10/19 06:25 Pulse 95 08/10/19 06:25 Resp 18 08/10/19 06:25 BP 145/74 08/10/19 06:25 Pulse Ox 95 08/10/19 06:25 Intake & Output 08/09/19 08/10/19 08/10/19 18:59 06:59 18:59 Intake Total 300 Balance 300 Intake: Oral 300 Other: # Voids 4 3 # Bowel Movements 1 Stool Characteristics Soft Active Medications: Current Medications Acetaminophen (Tylenol) 650 mg PO Q4H PRN PRN Reason: Pain (Mild 1-3) Stop: 09/28/19 04:08 Last Admin: 08/10/19 08:49 Dose: 650 mg Acetaminophen (Tylenol) 650 mg PO Q4H PRN PRN Reason: TEMP.>100.4 Stop: 09/28/19 04:14 Acetaminophen/Hydrocodone Bitart ([place] 5mg/325mg) 1 tab PO Q6H PRN PRN Reason: Pain (Moderate 4-6) Stop: 10/02/19 06:57 Last Admin: 08/09/19 06:06 Dose: 1 tab Acetaminophen/Hydrocodone Bitart ([place] 10 Mg/325 Mg) 1 tab PO Q6H PRN PRN Reason: Pain (Severe 7-10) Stop: 10/02/19 06:58 Last Admin: 08/10/19 06:36 Dose: 1 tab Al Hydrox/Mg Hydrox/Simethicone (Maalox) 30 ml PO Q4HR PRN PRN Reason: GI DISTRESS Stop: 09/28/19 04:08 Ascorbic Acid (Vitamin C) 500 mg PO DAILY [facility] Stop: 09/28/19 08:59 Last Admin: 08/10/19 08:50 Dose: 500 mg Docusate Sodium (Colace) 100 mg PO BID [facility] Stop: 09/28/19 08:59 Last Admin: 08/10/19 08:50 Dose: 100 mg Fluphenazine Decanoate (Prolixin Deconate) 25 mg IM [id number] [facility]; Protocol Stop: 10/05/19 16:59 Last Admin: 08/06/19 16:18 Dose: Not Given Lactulose (Cephulac) 30 gm PO TID [facility] Stop: 09/28/19 08:59 Last Admin: 08/10/19 08:45 Dose: Not Given Levetiracetam (Keppra) 500 mg PO DAILY [facility] Stop: 09/28/19 08:59 Last Admin: 08/10/19 08:50 Dose: 500 mg Lorazepam (Ativan) 0.5 mg PO Q4HR PRN; Protocol PRN Reason: Anxiety Stop: 08/29/19 04:08 Last Admin: 08/09/19 22:42 Dose: 0.5 mg Magnesium Hydroxide (Milk Of Magnesia) 30 ml PO HS PRN PRN Reason: Constipation Nitroglycerin (Nitrostat) 0.4 mg SL Q5MIN PRN PRN Reason: Chest Pain Stop: 09/28/19 04:56 Olanzapine (Zyprexa) 10 mg PO HS [facility]; Protocol Stop: 09/28/19 20:59 Last Admin: 08/09/19 21:06 Dose: 10 mg Rivaroxaban (Xarelto) 10 mg PO QPM [facility] Stop: 09/28/19 16:59 Last Admin: 08/09/19 16:57 Dose: 10 mg Senna (Senna) 8.6 mg PO HS [facility] Stop: 09/28/19 20:59 Last Admin: 08/09/19 21:06 Dose: 8.6 mg Trazodone HCl (Desyrel) 50 mg PO HS [facility]; Protocol Stop: 09/28/19 20:59 Last Admin: 08/09/19 21:07 Dose: 50 mg Zinc Sulfate (Zinc Sulfate) 220 mg PO DAILY [facility] Stop: 09/28/19 08:59 Last Admin: 08/10/19 08:50 Dose: 220 mg Zolpidem Tartrate (Ambien) 5 mg PO HS PRN PRN Reason: Insomnia Stop: 09/28/19 04:08 Last Admin: 08/09/19 21:07 Dose: 5 mg Physical Exam: Patient needs close monitoring, irritable and agitated. General: alert, demented HEENT: NC/AT, PERRLA Neck: Supple Lungs: CTAB Cardiovascular: RRR, Normal S1, Normal S2 Abdomen: soft, non-tender, non-distended Extremities: excoriation Neurological: alert Internal Medicine Assmt/Plan - Assessment Assessment: Paraplegia. Seizures. Psychosis. Constipation. Schizophrenia, chronic, paranoid type. Impulse control disorder. 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 - Plan Plan: Continuation of care. Psych management as per Psych. Monitor Labs and vitals. Continue present meds as directed. Monitor Diet/Nutritional support. Pain Management. Safety precaution. Supportive care. Fall precaution, frequent nursing rounds, and as needed restraints to prevent fall. Continue collaborating with consulting specialists, case management and nursing team. Will Monitor patient and continue present care management. Nutritional Asmnt/Malnutr-PDOC - Dietary Evaluation Malnutrition Findings (Please click <Entered> for more info): Nutritional Asmnt/Malnutrition Start: 08/03/19 11: 51 Text: Status: Complete Freq: Protocol: Document 08/03/19 11:51 BOBBY (Rec: 08/03/19 11:54 [email or web address] [id number]) Nutritional Asmnt/Malnutrition Patient General Information Nutritional Screening Moderate Risk Diagnosis Psychosis Pertinent Medical Hx/Surgical Hx Paraplegia, Seizures, Constipation, Psychosis Subjective Information Pt is a 59-year-old female admitted on 07/30 d/t psychosis . Pt is eating an estimated 64 % of meals x3 days Per Meal/ Nutrition Activity Record. Dietary is currently providing an estimated 2150 kcals and 90 gm Pro, per Pt PO intake this is providing an estimated 1380 kcals and 58gm Pro to meet 89% kcal and 97% Pro needs. Add Jeremias BID to support wound healing. Will monitor pt tolerance and wound healing progress. Anthropometrics HT: 54 WT: 138 LB (62.73 kg) BMI: 23.78 (Normal) GI/ Skin Integrity GI: WNL, Soft, Flat, Non- tender BM: 08/02 x2 I/O: 1090/Not Noted Skin: Reddened, Lower LT Buttocks Maceration, Pale, Ulceration Ernie: 13 Diet Order: Regular Estimated Energy Needs: ( Geriatric, CBW) 3952-4056 kcals (25-30 kcals/ kg) 60-75g Pro (1.0-1.2 g/kg) 1144-7320 ml (25-30 ml/kg) Current Diet Order/ Nutrition Support Regular Pertinent Medications Maalox (PRN), Vitamin C, Colace, Cephulac, MOM (PRN) Pertinent Labs 07/29: Na 132, Glucose 136, Albumin 3.2, HDL Chol 40 Nutritional Hx/Data Height 1.63 m Height (Calculated Centimeters) 162.6 Current Weight (lbs) 62.596 kg Weight (Calculated Kilograms) 62.6 Weight (Calculated Grams) 21532.7 [place] Body Weight 115 LB (52.27 kg) % [place] Body Weight 120 Body Mass Index (BMI) 23.6 Weight Status Approriate GI Symptoms Last BM 08/02 x2 Skin Integrity/Comment: Skin: Reddened, Lower LT Buttocks Maceration, Pale, Ulceration Ernie: 13 Add Jeremias BID to support wound healing. Will monitor pt tolerance and wound healing progress. Nutritional Problem 1. Problem Problem Increased mineral/vitamin needs Etiology r/t wound healing Signs/Symptoms: aeb Reddened, Lower LT Buttocks Maceration, Pale, Ulceration and Ernie Score 13 . Intervention/Recommendation Comments 1. Continue Regular diet as tolerated. 2. Add Jeremias BID to support wound healing (completed). Expected Outcomes/Goals Expected Outcomes/Goals 1.PO intake to continue to meet >75% of estimated nutritional needs. 2.Monitor PO intake, wt, nutrition related labs, and skin integrity to trend WNL. 3.F/U as moderate risk in 3-5 days, 08/06-08/08.
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
[2019-08-11] MEDS: Hydrocodone/APAP 10 mg/325 mg Tab PO PRN ×3 (03:54→20:53)
[2019-08-11] MEDS: Lactulose 10 Gm/15 mL 30mL UDC PO SCH ×3 (09:03→20:52)
[2019-08-11] MEDS: Multivitamin w/ Minerals Tab PO SCH (09:03)
--- NOTE | 2019-08-11 10:22 | Progress Notes ---
DATE: 08/10/2019 PSYCHOLOGY PROGRESS NOTE SUBJECTIVE: The patient is seen and interviewed. Case is discussed with staff. The patient is up in her wheelchair in her room. The patient presents as easily irritated. The patient states that she does not want to take her medications because they make her nauseous. Staff reports the patient's impulse control remains poor. The patient reports that she believes someone has stolen her belongings as well as something connected to a business investment. Overall, the patient seems to be paranoid and grandiose and has poor insight into her illness. OBJECTIVE: Mood is irritable. Affect is constricted. Thought process includes grandiosity along with paranoid ideation. The patient has poor insight and judgment. The patient has been intermittently compliant with her medications. ASSESSMENT: The patient's psychosis and impulsivity persist. PLAN: We provided supportive psychotherapy, which included encouragement for the patient to comply with her care and treatment. We provided remotivation as well. We provided coping strategies for chronic severe mental illness. We provided reality testing and reality differentiation and integration. The patient has been intermittently compliant with medication. We provided remotivation for the patient to become compliant with her medications. We will follow up in 2-3 days to continue the present treatment if the patient remains admitted on the unit. [facility] [place]# [id number] JESSICA
--- NOTE | 2019-08-11 12:22 | Internal Medicine Prog Note ---
Internal Medicine Subjective - Subjective Service Date: 08/11/19 Patient seen and examined:: with staff Patient is:: awake, verbal, in wheelchair, confused Patient Complaints of:: other Per staff patient has:: no adverse event, tolerating meds Internal Medicine Objective - Physical Exam Vitals and I&O: Vital Signs Temp 99.3 F 08/11/19 06:24 Pulse 97 08/11/19 06:24 Resp 18 08/11/19 07:38 BP 121/86 08/11/19 06:24 Pulse Ox 97 08/11/19 06:24 Intake & Output 08/10/19 08/11/19 08/11/19 18:59 06:59 18:59 Intake Total 950 240 Balance 950 240 Intake: Oral 950 240 Other: # Voids 5 2 # Bowel Movements 2 Stool Characteristics Soft Active Medications: Current Medications Acetaminophen (Tylenol) 650 mg PO Q4H PRN PRN Reason: Pain (Mild 1-3) Stop: 09/28/19 04:08 Last Admin: 08/10/19 08:49 Dose: 650 mg Acetaminophen (Tylenol) 650 mg PO Q4H PRN PRN Reason: TEMP.>100.4 Stop: 09/28/19 04:14 Acetaminophen/Hydrocodone Bitart ([place] 5mg/325mg) 1 tab PO Q6H PRN PRN Reason: Pain (Moderate 4-6) Stop: 10/02/19 06:57 Last Admin: 08/09/19 06:06 Dose: 1 tab Acetaminophen/Hydrocodone Bitart ([place] 10 Mg/325 Mg) 1 tab PO Q6H PRN PRN Reason: Pain (Severe 7-10) Stop: 10/02/19 06:58 Last Admin: 08/11/19 03:54 Dose: 1 tab Al Hydrox/Mg Hydrox/Simethicone (Maalox) 30 ml PO Q4HR PRN PRN Reason: GI DISTRESS Stop: 09/28/19 04:08 Ascorbic Acid (Vitamin C) 500 mg PO DAILY [facility] Stop: 09/28/19 08:59 Last Admin: 08/11/19 09:03 Dose: 500 mg Docusate Sodium (Colace) 100 mg PO BID [facility] Stop: 09/28/19 08:59 Last Admin: 08/11/19 09:03 Dose: 100 mg Fluphenazine Decanoate (Prolixin Deconate) 25 mg IM [id number] [facility]; Protocol Stop: 10/05/19 16:59 Last Admin: 08/06/19 16:18 Dose: Not Given Lactulose (Cephulac) 30 gm PO TID [facility] Stop: 09/28/19 08:59 Last Admin: 08/11/19 09:03 Dose: Not Given Levetiracetam (Keppra) 500 mg PO DAILY [facility] Stop: 09/28/19 08:59 Last Admin: 08/11/19 09:03 Dose: 500 mg Lorazepam (Ativan) 0.5 mg PO Q4HR PRN; Protocol PRN Reason: Anxiety Stop: 08/29/19 04:08 Last Admin: 08/10/19 20:38 Dose: 0.5 mg Magnesium Hydroxide (Milk Of Magnesia) 30 ml PO HS PRN PRN Reason: Constipation Nitroglycerin (Nitrostat) 0.4 mg SL Q5MIN PRN PRN Reason: Chest Pain Stop: 09/28/19 04:56 Olanzapine (Zyprexa) 10 mg PO HS [facility]; Protocol Stop: 09/28/19 20:59 Last Admin: 08/10/19 20:35 Dose: 10 mg Rivaroxaban (Xarelto) 10 mg PO QPM [facility] Stop: 09/28/19 16:59 Last Admin: 08/10/19 16:56 Dose: 10 mg Senna (Senna) 8.6 mg PO HS [facility] Stop: 09/28/19 20:59 Last Admin: 08/10/19 20:35 Dose: 8.6 mg Trazodone HCl (Desyrel) 50 mg PO HS [facility]; Protocol Stop: 09/28/19 20:59 Last Admin: 08/10/19 20:36 Dose: 50 mg Zinc Sulfate (Zinc Sulfate) 220 mg PO DAILY [facility] Stop: 09/28/19 08:59 Last Admin: 08/11/19 09:03 Dose: 220 mg Zolpidem Tartrate (Ambien) 5 mg PO HS PRN PRN Reason: Insomnia Stop: 09/28/19 04:08 Last Admin: 08/10/19 23:51 Dose: 5 mg Physical Exam: Patient needs close monitoring, very paranoid, easily agitated. General: alert, demented HEENT: NC/AT, PERRLA Neck: Supple Lungs: CTAB Cardiovascular: RRR, Normal S1, Normal S2 Abdomen: soft, non-tender, non-distended Extremities: excoriation Neurological: alert Internal Medicine Assmt/Plan - Assessment Assessment: Paraplegia. Seizures. Psychosis. Constipation. Schizophrenia, chronic, paranoid type. Impulse control disorder. 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 - Plan Plan: Continuation of care. Psych management as per Psych. Monitor Labs and vitals. Continue present meds as directed. Monitor Diet/Nutritional support. Pain Management. Safety precaution. Supportive care. Fall precaution, frequent nursing rounds, and as needed restraints to prevent fall. Continue collaborating with consulting specialists, case management and nursing team. Will Monitor patient and continue present care management. Nutritional Asmnt/Malnutr-PDOC - Dietary Evaluation Malnutrition Findings (Please click <Entered> for more info): Nutritional Asmnt/Malnutrition Start: 08/03/19 11: 51 Text: Status: Complete Freq: Protocol: Document 08/03/19 11:51 BOBBY (Rec: 08/03/19 11:54 BOBBY [id number]) Nutritional Asmnt/Malnutrition Patient General Information Nutritional Screening Moderate Risk Diagnosis Psychosis Pertinent Medical Hx/Surgical Hx Paraplegia, Seizures, Constipation, Psychosis Subjective Information Pt is a 59-year-old female admitted on 07/30 d/t psychosis . Pt is eating an estimated 64 % of meals x3 days Per Meal/ Nutrition Activity Record. Dietary is currently providing an estimated 2150 kcals and 90 gm Pro, per Pt PO intake this is providing an estimated 1380 kcals and 58gm Pro to meet 89% kcal and 97% Pro needs. Add Jeremias BID to support wound healing. Will monitor pt tolerance and wound healing progress. Anthropometrics HT: 54 WT: 138 LB (62.73 kg) BMI: 23.78 (Normal) GI/ Skin Integrity GI: WNL, Soft, Flat, Non- tender BM: 08/02 x2 I/O: 1090/Not Noted Skin: Reddened, Lower LT Buttocks Maceration, Pale, Ulceration Ernie: 13 Diet Order: Regular Estimated Energy Needs: ( Geriatric, CBW) 6722-6449 kcals (25-30 kcals/ kg) 60-75g Pro (1.0-1.2 g/kg) 8859-7349 ml (25-30 ml/kg) Current Diet Order/ Nutrition Support Regular Pertinent Medications Maalox (PRN), Vitamin C, Colace, Cephulac, MOM (PRN) Pertinent Labs 07/29: Na 132, Glucose 136, Albumin 3.2, HDL Chol 40 Nutritional Hx/Data Height 1.63 m Height (Calculated Centimeters) 162.6 Current Weight (lbs) 62.596 kg Weight (Calculated Kilograms) 62.6 Weight (Calculated Grams) 04586.7 [place] Body Weight 115 LB (52.27 kg) % [place] Body Weight 120 Body Mass Index (BMI) 23.6 Weight Status Approriate GI Symptoms Last BM 08/02 x2 Skin Integrity/Comment: Skin: Reddened, Lower LT Buttocks Maceration, Pale, Ulceration Ernie: 13 Add Jeremias BID to support wound healing. Will monitor pt tolerance and wound healing progress. Nutritional Problem 1. Problem Problem Increased mineral/vitamin needs Etiology r/t wound healing Signs/Symptoms: aeb Reddened, Lower LT Buttocks Maceration, Pale, Ulceration and Ernie Score 13 . Intervention/Recommendation Comments 1. Continue Regular diet as tolerated. 2. Add Jeremias BID to support wound healing (completed). Expected Outcomes/Goals Expected Outcomes/Goals 1.PO intake to continue to meet >75% of estimated nutritional needs. 2.Monitor PO intake, wt, nutrition related labs, and skin integrity to trend WNL. 3.F/U as moderate risk in 3-5 days, 08/06-08/08.
--- NOTE | 2019-08-12 02:10 | Progress Notes ---
DATE: 08/11/2019 PSYCHIATRIC PROGRESS NOTE SUBJECTIVE: Staff was spoken to. The patient is interviewed. Mood is noted to be irritable. Affect is constricted. The patient continues to be very paranoid. The patient is stating that she needed more pain medications. Insight and judgment are noted to be still impaired. Impulse control is noted to be limited. The patient is currently on 10 mg of the olanzapine and has been able to tolerate the medication. ASSESSMENT: The patient is still paranoid and depressed. PLAN: Continue the patient with supportive therapy. I encouraged the patient to verbalize the concerns rather than to act out. JOB# [id number]
[2019-08-12] MEDS: Hydrocodone/APAP 10 mg/325 mg Tab PO PRN ×3 (04:10→20:18)
[2019-08-12] MEDS: Multivitamin w/ Minerals Tab PO SCH (08:24)
[2019-08-12] MEDS: Lactulose 10 Gm/15 mL 30mL UDC PO SCH ×3 (08:25→20:17)
--- NOTE | 2019-08-12 13:34 | Internal Medicine Prog Note ---
Internal Medicine Subjective - Subjective Service Date: 08/12/19 Patient seen and examined:: with staff Patient is:: awake, verbal, in wheelchair, confused Patient Complaints of:: other Per staff patient has:: no adverse event, tolerating meds Internal Medicine Objective - Physical Exam Vitals and I&O: Vital Signs Temp 98.1 F 08/12/19 06:38 Pulse 93 08/12/19 06:38 Resp 20 08/12/19 08:00 BP 123/80 08/12/19 06:38 Pulse Ox 96 08/12/19 06:38 Intake & Output 08/11/19 08/12/19 08/12/19 18:59 06:59 18:59 Intake Total 1200 120 Balance 1200 120 Intake: Oral 1200 120 Other: # Voids 3 3 # Bowel Movements 0 0 Active Medications: Current Medications Acetaminophen (Tylenol) 650 mg PO Q4H PRN PRN Reason: Pain (Mild 1-3) Stop: 09/28/19 04:08 Last Admin: 08/10/19 08:49 Dose: 650 mg Acetaminophen (Tylenol) 650 mg PO Q4H PRN PRN Reason: TEMP.>100.4 Stop: 09/28/19 04:14 Acetaminophen/Hydrocodone Bitart ([place] 5mg/325mg) 1 tab PO Q6H PRN PRN Reason: Pain (Moderate 4-6) Stop: 10/02/19 06:57 Last Admin: 08/09/19 06:06 Dose: 1 tab Acetaminophen/Hydrocodone Bitart ([place] 10 Mg/325 Mg) 1 tab PO Q6H PRN PRN Reason: Pain (Severe 7-10) Stop: 10/02/19 06:58 Last Admin: 08/12/19 10:45 Dose: 1 tab Al Hydrox/Mg Hydrox/Simethicone (Maalox) 30 ml PO Q4HR PRN PRN Reason: GI DISTRESS Stop: 09/28/19 04:08 Ascorbic Acid (Vitamin C) 500 mg PO DAILY [facility] Stop: 09/28/19 08:59 Last Admin: 08/12/19 08:24 Dose: 500 mg Docusate Sodium (Colace) 100 mg PO BID [facility] Stop: 09/28/19 08:59 Last Admin: 08/12/19 08:24 Dose: 100 mg Fluphenazine Decanoate (Prolixin Deconate) 25 mg IM [id number] [facility]; Protocol Stop: 10/05/19 16:59 Last Admin: 08/06/19 16:18 Dose: Not Given Lactulose (Cephulac) 30 gm PO TID [facility] Stop: 09/28/19 08:59 Last Admin: 08/12/19 13:10 Dose: Not Given Levetiracetam (Keppra) 500 mg PO DAILY [facility] Stop: 09/28/19 08:59 Last Admin: 08/12/19 08:24 Dose: 500 mg Lorazepam (Ativan) 0.5 mg PO Q4HR PRN; Protocol PRN Reason: Anxiety Stop: 08/29/19 04:08 Last Admin: 08/12/19 08:24 Dose: 0.5 mg Magnesium Hydroxide (Milk Of Magnesia) 30 ml PO HS PRN PRN Reason: Constipation Nitroglycerin (Nitrostat) 0.4 mg SL Q5MIN PRN PRN Reason: Chest Pain Stop: 09/28/19 04:56 Olanzapine (Zyprexa) 10 mg PO HS [facility]; Protocol Stop: 09/28/19 20:59 Last Admin: 08/11/19 20:53 Dose: 10 mg Rivaroxaban (Xarelto) 10 mg PO QPM [facility] Stop: 09/28/19 16:59 Last Admin: 08/11/19 16:13 Dose: 10 mg Senna (Senna) 8.6 mg PO HS [facility] Stop: 09/28/19 20:59 Last Admin: 08/11/19 20:53 Dose: 8.6 mg Trazodone HCl (Desyrel) 50 mg PO HS [facility]; Protocol Stop: 09/28/19 20:59 Last Admin: 08/11/19 20:53 Dose: 50 mg Zinc Sulfate (Zinc Sulfate) 220 mg PO DAILY [facility] Stop: 09/28/19 08:59 Last Admin: 08/12/19 08:24 Dose: 220 mg Zolpidem Tartrate (Ambien) 5 mg PO HS PRN PRN Reason: Insomnia Stop: 09/28/19 04:08 Last Admin: 08/10/19 23:51 Dose: 5 mg Physical Exam: Patient needs close monitoring, has paranoia, depression and is still impaired. General: alert, demented HEENT: NC/AT, PERRLA Neck: Supple Lungs: CTAB Cardiovascular: RRR, Normal S1, Normal S2 Abdomen: soft, non-tender, non-distended Extremities: excoriation Neurological: alert Internal Medicine Assmt/Plan - Assessment Assessment: Paraplegia. Seizures. Psychosis. Constipation. Schizophrenia, chronic, paranoid type. Impulse control disorder. 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 - Plan Plan: Continuation of care. Psych management as per Psych. Monitor Labs and vitals. Continue present meds as directed. Monitor Diet/Nutritional support. Pain Management. Safety precaution. Supportive care. Fall precaution, frequent nursing rounds, and as needed restraints to prevent fall. Continue collaborating with consulting specialists, case management and nursing team. Will Monitor patient and continue present care management. Nutritional Asmnt/Malnutr-PDOC - Dietary Evaluation Malnutrition Findings (Please click <Entered> for more info): Nutritional Asmnt/Malnutrition Start: 08/03/19 11: 51 Text: Status: Complete Freq: Protocol: Document 08/03/19 11:51 BOBBY (Rec: 08/03/19 11:54 BOBBY [email or web address]) Nutritional Asmnt/Malnutrition Patient General Information Nutritional Screening Moderate Risk Diagnosis Psychosis Pertinent Medical Hx/Surgical Hx Paraplegia, Seizures, Constipation, Psychosis Subjective Information Pt is a 59-year-old female admitted on 07/30 d/t psychosis . Pt is eating an estimated 64 % of meals x3 days Per Meal/ Nutrition Activity Record. Dietary is currently providing an estimated 2150 kcals and 90 gm Pro, per Pt PO intake this is providing an estimated 1380 kcals and 58gm Pro to meet 89% kcal and 97% Pro needs. Add Jeremias BID to support wound healing. Will monitor pt tolerance and wound healing progress. Anthropometrics HT: 54 WT: 138 LB (62.73 kg) BMI: 23.78 (Normal) GI/ Skin Integrity GI: WNL, Soft, Flat, Non- tender BM: 08/02 x2 I/O: 1090/Not Noted Skin: Reddened, Lower LT Buttocks Maceration, Pale, Ulceration Ernie: 13 Diet Order: Regular Estimated Energy Needs: ( Geriatric, CBW) 6309-7864 kcals (25-30 kcals/ kg) 60-75g Pro (1.0-1.2 g/kg) 5029-8615 ml (25-30 ml/kg) Current Diet Order/ Nutrition Support Regular Pertinent Medications Maalox (PRN), Vitamin C, Colace, Cephulac, MOM (PRN) Pertinent Labs 07/29: Na 132, Glucose 136, Albumin 3.2, HDL Chol 40 Nutritional Hx/Data Height 1.63 m Height (Calculated Centimeters) 162.6 Current Weight (lbs) 62.596 kg Weight (Calculated Kilograms) 62.6 Weight (Calculated Grams) 72694.7 [place] Body Weight 115 LB (52.27 kg) % [place] Body Weight 120 Body Mass Index (BMI) 23.6 Weight Status Approriate GI Symptoms Last BM 08/02 x2 Skin Integrity/Comment: Skin: Reddened, Lower LT Buttocks Maceration, Pale, Ulceration Ernie: 13 Add Jeremias BID to support wound healing. Will monitor pt tolerance and wound healing progress. Nutritional Problem 1. Problem Problem Increased mineral/vitamin needs Etiology r/t wound healing Signs/Symptoms: aeb Reddened, Lower LT Buttocks Maceration, Pale, Ulceration and Ernie Score 13 . Intervention/Recommendation Comments 1. Continue Regular diet as tolerated. 2. Add Jeremias BID to support wound healing (completed). Expected Outcomes/Goals Expected Outcomes/Goals 1.PO intake to continue to meet >75% of estimated nutritional needs. 2.Monitor PO intake, wt, nutrition related labs, and skin integrity to trend WNL. 3.F/U as moderate risk in 3-5 days, 08/06-08/08.
--- NOTE | 2019-08-12 19:43 | Progress Notes ---
DATE: 08/12/2019 PSYCHOLOGY PROGRESS NOTE SUBJECTIVE: The patient is seen in her room and is interviewed. Case is discussed with staff. The patient continues to be easily irritated and presents as entitled and demanding. There is some grandiosity present. The patient continues to verbalize paranoid delusion. The patient continues to be pain medication seeking. The patient has been more withdrawn over the last 2 days according to the staff. OBJECTIVE: Mood is irritable, depressed. Affect is constricted. Thought process includes paranoid delusion. The patient denied any hallucinations. The patient appears to be withdrawn and depressed. Impulse control is limited. Staff reports the patient is pain medication seeking. ASSESSMENT: The patient's paranoia and depression persist. PLAN: We provided reality testing and reality differentiation and integration. We provided remotivation for the patient to become compliant and stay compliant with her care and treatment. The patient continues to be pain medication seeking. Dependency and the possibility of addiction were discussed with the patient. The patient seems not to understand this and has been verbally aggressive with staff. Therefore, we provided limit setting as well as boundary definitions and awareness for the patient to more appropriately interact with staff. We encouraged the patient to verbalize her concerns versus acting out. We will follow up in 2-3 days to continue the present treatment if the patient remains on the unit and is able to demonstrate the capacity to benefit. JOB# [id number] JESSICA
--- NOTE | 2019-08-13 01:39 | Progress Notes ---
DATE: 08/12/2019 PSYCHIATRIC PROGRESS NOTE SUBJECTIVE: Staff was spoken to. The patient is interviewed. Mood is noted to be irritable. Affect is constricted. Insight and judgment are noted to be still impaired. Impulse control is noted to be limited. Coping skills are noted to be limited. The patient has been having difficult time to cope with the stress. The patient is verbally abusive and has been cursing the physician who has not been giving her extra dose of the pain medications. The patient has no insight into her illness. The patient continues to be pacing most of the time and has been aggressive and psychotic and verbally abusive towards the staff member. In view of this one, it is decided to increase the dose on the Zyprexa to 10 mg twice a day and follow the patient with the supportive therapy. Please note that the patient is not ready to be discharged to a lower level of care. fleet sales manager has been trying to get the patient into a facility, but none of the places are willing to accept the patient. The patient is going to be closely monitored and followed up. JOB# [id number]
[2019-08-13] MEDS: Hydrocodone/APAP 5mg/325mg Tab PO PRN (05:02)
[2019-08-13] MEDS: Multivitamin w/ Minerals Tab PO SCH (08:48)
[2019-08-13] MEDS: Hydrocodone/APAP 10 mg/325 mg Tab PO PRN ×2 (08:48→20:20)
[2019-08-13] MEDS: Lactulose 10 Gm/15 mL 30mL UDC PO SCH ×3 (08:49→20:22)
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
--- NOTE | 2019-08-13 11:15 | Internal Medicine Prog Note ---
Internal Medicine Subjective - Subjective Service Date: 08/13/19 Patient is:: awake, verbal, in wheelchair, confused Patient Complaints of:: other Per staff patient has:: no adverse event, tolerating meds Internal Medicine Objective - Physical Exam Vitals and I&O: Vital Signs Temp 98.1 F 08/13/19 06:18 Pulse 101 08/13/19 06:18 Resp 18 08/13/19 06:18 BP 134/77 08/13/19 06:18 Pulse Ox 96 08/13/19 06:18 Intake & Output 08/12/19 08/13/19 08/13/19 18:59 06:59 18:59 Intake Total 1400 120 Balance 1400 120 Intake: Oral 1400 120 Other: # Voids 4 1 # Bowel Movements 0 0 Active Medications: Current Medications Acetaminophen (Tylenol) 650 mg PO Q4H PRN PRN Reason: Pain (Mild 1-3) Stop: 09/28/19 04:08 Last Admin: 08/10/19 08:49 Dose: 650 mg Acetaminophen (Tylenol) 650 mg PO Q4H PRN PRN Reason: TEMP.>100.4 Stop: 09/28/19 04:14 Acetaminophen/Hydrocodone Bitart ([place] 5mg/325mg) 1 tab PO Q6H PRN PRN Reason: Pain (Moderate 4-6) Stop: 10/02/19 06:57 Last Admin: 08/13/19 05:02 Dose: 1 tab Acetaminophen/Hydrocodone Bitart ([place] 10 Mg/325 Mg) 1 tab PO Q6H PRN PRN Reason: Pain (Severe 7-10) Stop: 10/02/19 06:58 Last Admin: 08/13/19 08:48 Dose: 1 tab Al Hydrox/Mg Hydrox/Simethicone (Maalox) 30 ml PO Q4HR PRN PRN Reason: GI DISTRESS Stop: 09/28/19 04:08 Ascorbic Acid (Vitamin C) 500 mg PO DAILY [facility] Stop: 09/28/19 08:59 Last Admin: 08/13/19 08:48 Dose: 500 mg Docusate Sodium (Colace) 100 mg PO BID [facility] Stop: 09/28/19 08:59 Last Admin: 08/13/19 08:48 Dose: 100 mg Fluphenazine Decanoate (Prolixin Deconate) 25 mg IM [id number] [facility]; Protocol Stop: 10/05/19 16:59 Last Admin: 08/06/19 16:18 Dose: Not Given Lactulose (Cephulac) 30 gm PO TID [facility] Stop: 09/28/19 08:59 Last Admin: 08/13/19 08:49 Dose: Not Given Levetiracetam (Keppra) 500 mg PO DAILY [facility] Stop: 09/28/19 08:59 Last Admin: 08/13/19 08:48 Dose: 500 mg Lorazepam (Ativan) 0.5 mg PO Q4HR PRN; Protocol PRN Reason: Anxiety Stop: 08/29/19 04:08 Last Admin: 08/12/19 08:24 Dose: 0.5 mg Magnesium Hydroxide (Milk Of Magnesia) 30 ml PO HS PRN PRN Reason: Constipation Nitroglycerin (Nitrostat) 0.4 mg SL Q5MIN PRN PRN Reason: Chest Pain Stop: 09/28/19 04:56 Olanzapine (Zyprexa) 10 mg PO BID [facility]; Protocol Stop: 10/12/19 08:59 Last Admin: 08/13/19 08:48 Dose: 10 mg Rivaroxaban (Xarelto) 10 mg PO QPM [facility] Stop: 09/28/19 16:59 Last Admin: 08/12/19 17:16 Dose: 10 mg Senna (Senna) 8.6 mg PO HS [facility] Stop: 09/28/19 20:59 Last Admin: 08/12/19 20:17 Dose: 8.6 mg Trazodone HCl (Desyrel) 50 mg PO HS [facility]; Protocol Stop: 09/28/19 20:59 Last Admin: 08/12/19 20:17 Dose: 50 mg Zinc Sulfate (Zinc Sulfate) 220 mg PO DAILY [facility] Stop: 09/28/19 08:59 Last Admin: 08/13/19 08:48 Dose: 220 mg Zolpidem Tartrate (Ambien) 5 mg PO HS PRN PRN Reason: Insomnia Stop: 09/28/19 04:08 Last Admin: 08/13/19 01:43 Dose: 5 mg General: alert, demented HEENT: NC/AT, PERRLA Neck: Supple Lungs: CTAB Cardiovascular: RRR, Normal S1, Normal S2 Abdomen: soft, non-tender, non-distended Extremities: excoriation Neurological: alert Internal Medicine Assmt/Plan - Assessment Assessment: Agitation, history of seizures and psychosis. - Plan Plan: PLAN: We will continue the patient's home medications. Fall precautions will be initiated. We will continue to follow this patient. Nutritional Asmnt/Malnutr-PDOC - Dietary Evaluation Malnutrition Findings (Please click <Entered> for more info): Nutritional Asmnt/Malnutrition Start: 08/03/19 11: 51 Text: Status: Complete Freq: Protocol: Document 08/03/19 11:51 BOBBY (Rec: 08/03/19 11:54 BOBBY [email or web address]) Nutritional Asmnt/Malnutrition Patient General Information Nutritional Screening Moderate Risk Diagnosis Psychosis Pertinent Medical Hx/Surgical Hx Paraplegia, Seizures, Constipation, Psychosis Subjective Information Pt is a 59-year-old female admitted on 07/30 d/t psychosis . Pt is eating an estimated 64 % of meals x3 days Per Meal/ Nutrition Activity Record. Dietary is currently providing an estimated 2150 kcals and 90 gm Pro, per Pt PO intake this is providing an estimated 1380 kcals and 58gm Pro to meet 89% kcal and 97% Pro needs. Add Jeremias BID to support wound healing. Will monitor pt tolerance and wound healing progress. Anthropometrics HT: 54 WT: 138 LB (62.73 kg) BMI: 23.78 (Normal) GI/ Skin Integrity GI: WNL, Soft, Flat, Non- tender BM: 08/02 x2 I/O: 1090/Not Noted Skin: Reddened, Lower LT Buttocks Maceration, Pale, Ulceration Ernie: 13 Diet Order: Regular Estimated Energy Needs: ( Geriatric, CBW) 2242-0183 kcals (25-30 kcals/ kg) 60-75g Pro (1.0-1.2 g/kg) 9732-6109 ml (25-30 ml/kg) Current Diet Order/ Nutrition Support Regular Pertinent Medications Maalox (PRN), Vitamin C, Colace, Cephulac, MOM (PRN) Pertinent Labs 07/29: Na 132, Glucose 136, Albumin 3.2, HDL Chol 40 Nutritional Hx/Data Height 5 ft 4 in Height (Calculated Centimeters) 162.6 Current Weight (lbs) 138 lb Weight (Calculated Kilograms) 62.6 Weight (Calculated Grams) 00234.7 [place] Body Weight 115 LB (52.27 kg) % [place] Body Weight 120 Body Mass Index (BMI) 23.6 Weight Status Approriate GI Symptoms Last BM 08/02 x2 Skin Integrity/Comment: Skin: Reddened, Lower LT Buttocks Maceration, Pale, Ulceration Ernie: 13 Add Jeremias BID to support wound healing. Will monitor pt tolerance and wound healing progress. Nutritional Problem 1. Problem Problem Increased mineral/vitamin needs Etiology r/t wound healing Signs/Symptoms: aeb Reddened, Lower LT Buttocks Maceration, Pale, Ulceration and Ernie Score 13 . Intervention/Recommendation Comments 1. Continue Regular diet as tolerated. 2. Add Jeremias BID to support wound healing (completed). Expected Outcomes/Goals Expected Outcomes/Goals 1.PO intake to continue to meet >75% of estimated nutritional needs. 2.Monitor PO intake, wt, nutrition related labs, and skin integrity to trend WNL. 3.F/U as moderate risk in 3-5 days, 08/06-08/08.
[2019-08-14] MEDS: Hydrocodone/APAP 10 mg/325 mg Tab PO PRN (07:01)
[2019-08-14] MEDS: Multivitamin w/ Minerals Tab PO SCH (08:45)
[2019-08-14] MEDS: Lactulose 10 Gm/15 mL 30mL UDC PO SCH ×2 (08:45→14:00)
--- NOTE | 2019-08-14 10:25 | Internal Medicine Prog Note ---
Internal Medicine Subjective - Subjective Service Date: 08/14/19 Patient seen and examined:: with staff, chart reviewed Patient is:: awake, verbal, in wheelchair, confused Patient Complaints of:: other Per staff patient has:: no adverse event, no episodes of fall, tolerating meds Internal Medicine Objective - Physical Exam Vitals and I&O: Vital Signs Temp 98.7 F 08/14/19 06:29 Pulse 101 08/14/19 06:29 Resp 18 08/14/19 06:29 BP 142/77 08/14/19 06:29 Pulse Ox 97 08/14/19 06:29 Intake & Output 08/13/19 08/14/19 08/14/19 18:59 06:59 18:59 Intake Total 120 Balance 120 Intake: Oral 120 Other: # Voids 1 # Bowel Movements 0 Active Medications: Current Medications Acetaminophen (Tylenol) 650 mg PO Q4H PRN PRN Reason: Pain (Mild 1-3) Stop: 09/28/19 04:08 Last Admin: 08/13/19 14:30 Dose: 650 mg Acetaminophen (Tylenol) 650 mg PO Q4H PRN PRN Reason: TEMP.>100.4 Stop: 09/28/19 04:14 Acetaminophen/Hydrocodone Bitart ([place] 5mg/325mg) 1 tab PO Q6H PRN PRN Reason: Pain (Moderate 4-6) Stop: 10/02/19 06:57 Last Admin: 08/13/19 05:02 Dose: 1 tab Acetaminophen/Hydrocodone Bitart ([place] 10 Mg/325 Mg) 1 tab PO Q6H PRN PRN Reason: Pain (Severe 7-10) Stop: 10/02/19 06:58 Last Admin: 08/14/19 07:01 Dose: 1 tab Al Hydrox/Mg Hydrox/Simethicone (Maalox) 30 ml PO Q4HR PRN PRN Reason: GI DISTRESS Stop: 09/28/19 04:08 Ascorbic Acid (Vitamin C) 500 mg PO DAILY [facility] Stop: 09/28/19 08:59 Last Admin: 08/14/19 08:45 Dose: 500 mg Docusate Sodium (Colace) 100 mg PO BID [facility] Stop: 09/28/19 08:59 Last Admin: 08/14/19 08:45 Dose: 100 mg Fluphenazine Decanoate (Prolixin Deconate) 25 mg IM [id number] [facility]; Protocol Stop: 10/05/19 16:59 Last Admin: 08/06/19 16:18 Dose: Not Given Lactulose (Cephulac) 30 gm PO TID [facility] Stop: 09/28/19 08:59 Last Admin: 08/14/19 08:45 Dose: Not Given Levetiracetam (Keppra) 500 mg PO DAILY [facility] Stop: 09/28/19 08:59 Last Admin: 08/14/19 08:45 Dose: 500 mg Lorazepam (Ativan) 0.5 mg PO Q4HR PRN; Protocol PRN Reason: Anxiety Stop: 08/29/19 04:08 Last Admin: 08/12/19 08:24 Dose: 0.5 mg Magnesium Hydroxide (Milk Of Magnesia) 30 ml PO HS PRN PRN Reason: Constipation Nitroglycerin (Nitrostat) 0.4 mg SL Q5MIN PRN PRN Reason: Chest Pain Stop: 09/28/19 04:56 Olanzapine (Zyprexa) 10 mg PO BID [facility]; Protocol Stop: 10/12/19 08:59 Last Admin: 08/14/19 08:45 Dose: 10 mg Rivaroxaban (Xarelto) 10 mg PO QPM [facility] Stop: 09/28/19 16:59 Last Admin: 08/13/19 16:52 Dose: 10 mg Senna (Senna) 8.6 mg PO HS [facility] Stop: 09/28/19 20:59 Last Admin: 08/13/19 20:22 Dose: Not Given Trazodone HCl (Desyrel) 50 mg PO HS [facility]; Protocol Stop: 09/28/19 20:59 Last Admin: 08/13/19 20:55 Dose: 50 mg Zinc Sulfate (Zinc Sulfate) 220 mg PO DAILY [facility] Stop: 09/28/19 08:59 Last Admin: 08/14/19 08:45 Dose: 220 mg Zolpidem Tartrate (Ambien) 5 mg PO HS PRN PRN Reason: Insomnia Stop: 09/28/19 04:08 Last Admin: 08/13/19 01:43 Dose: 5 mg Physical Exam: Patient needs close monitoring, continues to be loud and yelling, impulsive and agitated. General: alert, demented HEENT: NC/AT, PERRLA Neck: Supple Lungs: CTAB Cardiovascular: RRR, Normal S1, Normal S2 Abdomen: soft, non-tender, non-distended Extremities: excoriation Neurological: alert Internal Medicine Assmt/Plan - Assessment Assessment: Paraplegia. Seizures. Psychosis. Constipation. Schizophrenia, chronic, paranoid type. Impulse control disorder. 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 - Plan Plan: Continuation of care. Psych management as per Psych. Monitor Labs and vitals. Continue present meds as directed. Monitor Diet/Nutritional support. Pain Management. Safety precaution. Supportive care. Fall precaution, frequent nursing rounds, and as needed restraints to prevent fall. Continue collaborating with consulting specialists, case management and nursing team. Will Monitor patient and continue present care management. Nutritional Asmnt/Malnutr-PDOC - Dietary Evaluation Malnutrition Findings (Please click <Entered> for more info): Nutritional Asmnt/Malnutrition Start: 08/03/19 11: 51 Text: Status: Complete Freq: Protocol: Document 08/03/19 11:51 BOBBY (Rec: 08/03/19 11:54 BOBBY [email or web address]) Nutritional Asmnt/Malnutrition Patient General Information Nutritional Screening Moderate Risk Diagnosis Psychosis Pertinent Medical Hx/Surgical Hx Paraplegia, Seizures, Constipation, Psychosis Subjective Information Pt is a 59-year-old female admitted on 07/30 d/t psychosis . Pt is eating an estimated 64 % of meals x3 days Per Meal/ Nutrition Activity Record. Dietary is currently providing an estimated 2150 kcals and 90 gm Pro, per Pt PO intake this is providing an estimated 1380 kcals and 58gm Pro to meet 89% kcal and 97% Pro needs. Add Jeremias BID to support wound healing. Will monitor pt tolerance and wound healing progress. Anthropometrics HT: 54 WT: 138 LB (62.73 kg) BMI: 23.78 (Normal) GI/ Skin Integrity GI: WNL, Soft, Flat, Non- tender BM: 08/02 x2 I/O: 1090/Not Noted Skin: Reddened, Lower LT Buttocks Maceration, Pale, Ulceration Ernie: 13 Diet Order: Regular Estimated Energy Needs: ( Geriatric, CBW) 8178-9106 kcals (25-30 kcals/ kg) 60-75g Pro (1.0-1.2 g/kg) 2319-1929 ml (25-30 ml/kg) Current Diet Order/ Nutrition Support Regular Pertinent Medications Maalox (PRN), Vitamin C, Colace, Cephulac, MOM (PRN) Pertinent Labs 07/29: Na 132, Glucose 136, Albumin 3.2, HDL Chol 40 Nutritional Hx/Data Height 1.63 m Height (Calculated Centimeters) 162.6 Current Weight (lbs) 62.596 kg Weight (Calculated Kilograms) 62.6 Weight (Calculated Grams) 34671.7 [place] Body Weight 115 LB (52.27 kg) % [place] Body Weight 120 Body Mass Index (BMI) 23.6 Weight Status Approriate GI Symptoms Last BM 08/02 x2 Skin Integrity/Comment: Skin: Reddened, Lower LT Buttocks Maceration, Pale, Ulceration Ernie: 13 Add Jeremias BID to support wound healing. Will monitor pt tolerance and wound healing progress. Nutritional Problem 1. Problem Problem Increased mineral/vitamin needs Etiology r/t wound healing Signs/Symptoms: aeb Reddened, Lower LT Buttocks Maceration, Pale, Ulceration and Ernie Score 13 . Intervention/Recommendation Comments 1. Continue Regular diet as tolerated. 2. Add Jeremias BID to support wound healing (completed). Expected Outcomes/Goals Expected Outcomes/Goals 1.PO intake to continue to meet >75% of estimated nutritional needs. 2.Monitor PO intake, wt, nutrition related labs, and skin integrity to trend WNL. 3.F/U as moderate risk in 3-5 days, 08/06-08/08.
--- NOTE | 2019-08-14 11:12 | Progress Notes ---
DATE: 08/14/2019 PSYCHIATRIC PROGRESS NOTE SUBJECTIVE: Staff was spoken to. The patient is interviewed. Mood is noted to be irritable. Affect is constricted. The patient's insight and judgment are noted to be very much impaired. The patient is stating that she lost a lot of money. 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 She has lost loss of songs, someone has been stealing. The patient continues to be paranoid, but denies any current hallucinations. The patient is also preoccupied with her pain medications. grievance manager has been trying to look for placement someone came to interview the patient yesterday, but is not very clear whether they are going to be accepting the patient or not. ASSESSMENT: The patient is still paranoid. PLAN: To continue the patient with the supportive therapy and followup. JOB# [id number]
--- NOTE | 2019-08-14 13:52 | Internal Medicine Prog Note ---
Internal Medicine Subjective - Subjective Service Date: 08/14/19 Patient is:: awake, verbal, in wheelchair, confused Patient Complaints of:: other Per staff patient has:: no adverse event, no episodes of fall, tolerating meds Internal Medicine Objective - Physical Exam Vitals and I&O: Vital Signs Temp 98.7 F 08/14/19 06:29 Pulse 101 08/14/19 06:29 Resp 18 08/14/19 06:29 BP 142/77 08/14/19 06:29 Pulse Ox 97 08/14/19 06:29 Intake & Output 08/13/19 08/14/19 08/14/19 18:59 06:59 18:59 Intake Total 120 Balance 120 Intake: Oral 120 Other: # Voids 1 # Bowel Movements 0 Active Medications: Current Medications Acetaminophen (Tylenol) 650 mg PO Q4H PRN PRN Reason: Pain (Mild 1-3) Stop: 09/28/19 04:08 Last Admin: 08/13/19 14:30 Dose: 650 mg Acetaminophen (Tylenol) 650 mg PO Q4H PRN PRN Reason: TEMP.>100.4 Stop: 09/28/19 04:14 Acetaminophen/Hydrocodone Bitart ([place] 5mg/325mg) 1 tab PO Q6H PRN PRN Reason: Pain (Moderate 4-6) Stop: 10/02/19 06:57 Last Admin: 08/13/19 05:02 Dose: 1 tab Acetaminophen/Hydrocodone Bitart ([place] 10 Mg/325 Mg) 1 tab PO Q6H PRN PRN Reason: Pain (Severe 7-10) Stop: 10/02/19 06:58 Last Admin: 08/14/19 07:01 Dose: 1 tab Al Hydrox/Mg Hydrox/Simethicone (Maalox) 30 ml PO Q4HR PRN PRN Reason: GI DISTRESS Stop: 09/28/19 04:08 Ascorbic Acid (Vitamin C) 500 mg PO DAILY [facility] Stop: 09/28/19 08:59 Last Admin: 08/14/19 08:45 Dose: 500 mg Docusate Sodium (Colace) 100 mg PO BID [facility] Stop: 09/28/19 08:59 Last Admin: 08/14/19 08:45 Dose: 100 mg Fluphenazine Decanoate (Prolixin Deconate) 25 mg IM [id number] JENNY; Protocol Stop: 10/05/19 16:59 Last Admin: 08/06/19 16:18 Dose: Not Given Lactulose (Cephulac) 30 gm PO TID [facility] Stop: 09/28/19 08:59 Last Admin: 08/14/19 08:45 Dose: Not Given Levetiracetam (Keppra) 500 mg PO DAILY [facility] Stop: 09/28/19 08:59 Last Admin: 08/14/19 08:45 Dose: 500 mg Lorazepam (Ativan) 0.5 mg PO Q4HR PRN; Protocol PRN Reason: Anxiety Stop: 08/29/19 04:08 Last Admin: 08/12/19 08:24 Dose: 0.5 mg Magnesium Hydroxide (Milk Of Magnesia) 30 ml PO HS PRN PRN Reason: Constipation Nitroglycerin (Nitrostat) 0.4 mg SL Q5MIN PRN PRN Reason: Chest Pain Stop: 09/28/19 04:56 Olanzapine (Zyprexa) 10 mg PO BID [facility]; Protocol Stop: 10/12/19 08:59 Last Admin: 08/14/19 08:45 Dose: 10 mg Rivaroxaban (Xarelto) 10 mg PO QPM [facility] Stop: 09/28/19 16:59 Last Admin: 08/13/19 16:52 Dose: 10 mg Senna (Senna) 8.6 mg PO HS [facility] Stop: 09/28/19 20:59 Last Admin: 08/13/19 20:22 Dose: Not Given Trazodone HCl (Desyrel) 50 mg PO HS [facility]; Protocol Stop: 09/28/19 20:59 Last Admin: 08/13/19 20:55 Dose: 50 mg Zinc Sulfate (Zinc Sulfate) 220 mg PO DAILY [facility] Stop: 09/28/19 08:59 Last Admin: 08/14/19 08:45 Dose: 220 mg Zolpidem Tartrate (Ambien) 5 mg PO HS PRN PRN Reason: Insomnia Stop: 09/28/19 04:08 Last Admin: 08/13/19 01:43 Dose: 5 mg General: alert, demented HEENT: NC/AT, PERRLA Neck: Supple Lungs: CTAB Cardiovascular: RRR, Normal S1, Normal S2 Abdomen: soft, non-tender, non-distended Extremities: excoriation Neurological: alert Internal Medicine Assmt/Plan - Assessment Assessment: Agitation, history of seizures and psychosis. - Plan Plan: PLAN: We will continue the patient's home medications. Fall precautions will be initiated. We will continue to follow this patient. Nutritional Asmnt/Malnutr-PDOC - Dietary Evaluation Malnutrition Findings (Please click <Entered> for more info): Nutritional Asmnt/Malnutrition Start: 08/03/19 11: 51 Text: Status: Complete Freq: Protocol: Document 08/03/19 11:51 BOBBY (Rec: 08/03/19 11:54 [email or web address] [email or web address]) Nutritional Asmnt/Malnutrition Patient General Information Nutritional Screening Moderate Risk Diagnosis Psychosis Pertinent Medical Hx/Surgical Hx Paraplegia, Seizures, Constipation, Psychosis Subjective Information Pt is a 59-year-old female admitted on 07/30 d/t psychosis . Pt is eating an estimated 64 % of meals x3 days Per Meal/ Nutrition Activity Record. Dietary is currently providing an estimated 2150 kcals and 90 gm Pro, per Pt PO intake this is providing an estimated 1380 kcals and 58gm Pro to meet 89% kcal and 97% Pro needs. Add Jeremias BID to support wound healing. Will monitor pt tolerance and wound healing progress. Anthropometrics HT: 54 WT: 138 LB (62.73 kg) BMI: 23.78 (Normal) GI/ Skin Integrity GI: WNL, Soft, Flat, Non- tender BM: 08/02 x2 I/O: 1090/Not Noted Skin: Reddened, Lower LT Buttocks Maceration, Pale, Ulceration Ernie: 13 Diet Order: Regular Estimated Energy Needs: ( Geriatric, CBW) 9663-4224 kcals (25-30 kcals/ kg) 60-75g Pro (1.0-1.2 g/kg) 3782-0171 ml (25-30 ml/kg) Current Diet Order/ Nutrition Support Regular Pertinent Medications Maalox (PRN), Vitamin C, Colace, Cephulac, MOM (PRN) Pertinent Labs 07/29: Na 132, Glucose 136, Albumin 3.2, HDL Chol 40 Nutritional Hx/Data Height 5 ft 4 in Height (Calculated Centimeters) 162.6 Current Weight (lbs) 138 lb Weight (Calculated Kilograms) 62.6 Weight (Calculated Grams) 38302.7 [place] Body Weight 115 LB (52.27 kg) % [place] Body Weight 120 Body Mass Index (BMI) 23.6 Weight Status Approriate GI Symptoms Last BM 08/02 x2 Skin Integrity/Comment: Skin: Reddened, Lower LT Buttocks Maceration, Pale, Ulceration Ernie: 13 Add Jeremias BID to support wound healing. Will monitor pt tolerance and wound healing progress. Nutritional Problem 1. Problem Problem Increased mineral/vitamin needs Etiology r/t wound healing Signs/Symptoms: aeb Reddened, Lower LT Buttocks Maceration, Pale, Ulceration and Ernie Score 13 . Intervention/Recommendation Comments 1. Continue Regular diet as tolerated. 2. Add Jeremias BID to support wound healing (completed). Expected Outcomes/Goals Expected Outcomes/Goals 1.PO intake to continue to meet >75% of estimated nutritional needs. 2.Monitor PO intake, wt, nutrition related labs, and skin integrity to trend WNL. 3.F/U as moderate risk in 3-5 days, 08/06-08/08.
[2019-08-14] MEDS: Hydrocodone/APAP 5mg/325mg Tab PO PRN (14:00)
--- NOTE | 2019-08-14 18:10 | Progress Notes ---
DATE: 08/14/2019 PSYCHOLOGY PROGRESS NOTE SUBJECTIVE: The patient is seen up in her wheelchair by the nurse's station. The patient is hyperverbal and is expressing herself with rambling speech and flight of ideas. The patient at times could respond to cognitive redirection to answer the question relevantly, but is markedly tangential and returns to flight of ideas. The patient continues to verbalize self-aggrandizing and grandiose thoughts. There was some paranoid ideation present. The patient continues to be preoccupied with pain medications. There is some difficulty with placement according to the staff. OBJECTIVE: Mood is labile. Affect is labile and animated. Thought process includes marked tangentiality with loose associations and flight of ideas. The patient also is expressing grandiosity with some paranoid ideation as well. The patient did not answer questions about hearing voices or experiencing visual hallucinations. The patient's behavior is difficult to redirect at times, but she is responding to staff direction and is compliant with her psychopharmacological medications. ASSESSMENT: The patient's grandiosity, paranoia, and flight of ideas persist however, this may be a baseline for this patient. PLAN: We provided coping strategies for chronic severe mental illness. We provided reality testing, which is poor. We provided reality differentiation and integration for the patient to focus on reality-based thoughts versus delusional. The patient had difficulty following that task and learning that particular skill. We provided encouragement as well as remotivation for the patient to follow through with all aspects of her care and treatment. The patient's placement is being discussed with case management and the attending psychiatrist. No other information is available at this time. We will follow up if the patient remains on the unit. No follow up is indicated at this time as the staff informed this junior underwriter that the patient is most likely discharging today. JOB# [id number] JESSICA
--- NOTE | 2019-08-15 13:22 | Discharge Summary ---
DATE OF DISCHARGE: 08/14/2019 IDENTIFYING DATA: The patient is a 59-year-old woman, admitted on a voluntary basis in view of her acute psychosis. DIAGNOSES ON ADMISSION: Schizophrenia, chronic paranoid type. AXIS I: Impulse control disorder, not otherwise specified. AXIS II: None. AXIS III: As per Dr. Bill, significant for spinal cord injury, coronary artery disease, DVT, seizure disorder and chronic pain. HOSPITAL COURSE AND RESPONSE TO TREATMENT: The patient has been observed on inpatient unit, provided with supportive psychotherapy. The patient continues to be argumentative, preoccupied with the pain medications and the patient has been placed on fluphenazine 25 mg IM 2 weeks and the patient also has been given the olanzapine 10 mg twice a day. With these medications, the patient was observed and the patient has been continued on her pain medications. The patient started to do fairly okay and the patient was discharged finally to [facility] with recommendation that she is going to be followed by Dr. Wu on an outpatient basis. MENTAL STATUS EXAMINATION AT THE TIME OF DISCHARGE: Noted to be stable. The patient is not presenting with any threats to harm self or others at the time of discharge. JOB# [id number]
== END 2019-08-14 17:04 | DRG 885 ==
LOC: GERO 07-30 03:10
PROVIDERS: ADMIT Psychiatry & Neurology Psychiatry; ATTEND Psychiatry & Neurology Psychiatry
DX: F20.0 Paranoid schizophrenia (principal); G82.20 Paraplegia, unspecified; F63.9 Impulse disorder, unspecified; G40.909 Epilepsy, unspecified, not intractable, without status epilepticus; I25.10 Atherosclerotic heart disease of native coronary artery without angina pectoris; K21.9 Gastro-esophageal reflux disease without esophagitis; F29 Unspecified psychosis not due to a substance or known physiological condition; K59.00 Constipation, unspecified; G89.29 Other chronic pain; Z88.0 Allergy status to penicillin; T14.8XXS Other injury of unspecified body region, sequela; Z79.899 Other long term (current) drug therapy
CPT/HCPCS: 83036-90; A4216; G0410; J1100; J1200; X6222; Z7610